=== PATIENT | male | born 1955 | race Caucasian/White ===

== ENCOUNTER 2016-09-29 11:09 | Emergency (ER) | payer OTHER ==
[~2016-09-29] VITALS: Ht 172.7 cm; Wt 60.7 kg
[~2016-09-29 11:09] MED LIST: FLUT220A INH; LORA-741 PO; OXYC-59 PO; TRAV0.00 OPB; VNTHFA/IN PO
[2016-09-29 11:16] VITALS: TEMP 37; Ht 172.7 cm; Wt 60.7 kg
--- NOTE | 2016-09-29 12:33 | EMERGENCY ROOM VISIT NOTE ---
History Report prepared by Nga: Tania Arora Under the Supervision of: Dr. Lewis Newby D.O. First contact with patient: 11:46 Chief Complaint: REFERRED BY DOCTOR Stated Complaint: HIGH WHITE BLOOD COUNT - REF BY History of Present Illness The patient is a 61 year old male who presents to the Emergency Room with complaints of persistent abnormal labs that were drawn yesterday. He currently rates his discomfort as a 7/10 in severity. The patient states that he saw his PCP's office yesterday regarding two enlarged lymph nodes and additionally notes that he has an enlarged lymph node in his right axilla. He states that he had blood work drawn and was called today say that his white blood count was elevated. The patient states that he was diagnosed with CLL 20 months ago. He denies being on any current radiation or chemotherapy treatments. The patient states that today he was instructed to come to the emergency department by his PCP's office. He states that his PCP's office did not consult his oncologist about his laboratory findings. Source of History: patient Onset: yesterday Position: other (global) Symptom Intensity: 7/10 Quality: other (abnormal labs) Timing: other (persistent) Associated Symptoms: + lymphadenopathy Review of Systems See HPI for pertinent positives & negatives. A total of 10 systems reviewed and were otherwise negative. Past Medical & Surgical Medical Problems: (1) CLL (chronic lymphocytic leukemia) Surgical Problems: (1) Status post right knee replacement Family History Heart disease Social History Smoking Status: Never Smoker Smokeless Tobacco Use: No Alcohol Use: none Drug Use: none Marital Status: single Housing Status: lives alone Occupation Status: unemployed Current/Historical Medications Scheduled Lorazepam (Ativan), 0.5 MG PO QID Travoprost (Travatan Z), 1 DROP OPB HS Scheduled PRN Albuterol Hfa (Ventolin Hfa), 2 PUFFS PO DAILY PRN for Shortness of Breath Fluticasone Propionate Hfa (Flovent Hfa 220MCG Inhaler), 1 PUFF INH DAILY PRN for Shortness of Breath Oxycodone/Acetaminophen 10MG/325MG (Percocet 10MG/325MG), 2 TABS PO BID PRN for Pain Allergies Coded Allergies: Bee Venom (Unverified Allergy, Unknown, throat swelling , 09/29/16) Physical Exam Vital Signs Date Time Temp Pulse Resp B/P Pulse Ox O2 Delivery O2 Flow Rate FiO2 09/29/16 11:16 37.0 120 18 143/93 95 Room Air Physical Exam CONSTITUTIONAL/VITAL SIGNS: Reviewed / noted above. GENERAL: Non-toxic in appearance. INTEGUMENTARY: Warm, dry, and [place]. HEAD: Normocephalic. EYES: without scleral icterus or trauma. ENT/OROPHARYNX: clear and moist. LYMPHADENOPATHY/NECK: Is supple without lymphadenopathy or meningismus. Notable lymphadenopathy in bilateral inguinal regions and right axilla. RESPIRATORY: Lungs clear and equal. CARDIOVASCULAR: Regular rate and rhythm. GI/ABDOMEN: Soft and nontender. No organomegaly or pulsatile mass. No rebound or guarding. Normal bowel sounds. EXTREMITIES: Warm and well perfused. BACK: No CVA tenderness. NEUROLOGICAL: Intact without focal deficits. PSYCHIATRIC: normal affect. MUSCULOSKELETAL: Normally developed with good muscle tone. Medical Decision & Procedures ED Course 1146: Previous medical records were reviewed. The patient was evaluated in room C5. A complete history and physical examination was performed. 1224: I discussed the patients case with Dr. Blackman, Oncology. He states that someone from their office will contact him early next week for follow up. 1234: I reevaluated the patient and he is resting comfortably. I discussed the exam findings with him and I discussed the treatment plan. He verbalized complete understanding and agreement. He is ready to go home. Medical Decision Differential diagnosis include CLL, infection, anemia. This is a 61-year-old male who presents to the ED with a chief complaint of an outpatient white blood cell count 59,000. The patient reports some inguinal lymphadenopathy but otherwise states the has no specific complaints. His PCP ordered the blood work. They sent him here to the emergency department for assessment. I spoke with Dr. Cifuentes about the patient. He is setting the patient up for an outpatient scan and the office will contact for an appointment next week. The patient was felt to be stable for discharge. Consults Time Called: 1210 Consulting Physician: Dr. Blackman, Oncology Returned Call: 1224 I discussed the patients case with Dr. Blackman, Oncology. He states that someone from their office will contact him early next week for follow up. Impression Primary Impression: CLL (chronic lymphocytic leukemia) Scribe Attestation The scribe's documentation has been prepared under my direction and personally reviewed by me in its entirety. I confirm that the note above accurately reflects all work, treatment, procedures, and medical decision making performed by me. Departure Information Dispostion Home / Self-Care Referrals Adriano Izaguirre M.D. (PCP) Adriano Payne D.O. Forms HOME CARE DOCUMENTATION FORM, IMPORTANT VISIT INFORMATION, WORK / SCHOOL INSTRUCTIONS Patient Instructions My [facility] Additional Instructions Dr. Payne's office will contact you next week for a scan and follow-up appointment.
[2016-09-29 12:38] VITALS: BP 149/89; PULSE 95; O2SAT 93
[2016-12-08] MEDS ORDERED: BND25X PO (10:05)
[2016-12-08] MEDS ORDERED: [UNRECOGNIZED DRUG - CODE] EXT (10:05)
[2016-12-08] MEDS ORDERED: PRD20 PO (10:05)
[2017-04-03] MEDS ORDERED: PROC1TAB5 PO (08:41)
[2017-04-03] MEDS ORDERED: MULT-506 PO (08:41)
[2017-04-03] MEDS ORDERED: DOCU-94 PO (08:41)
[2017-04-16] MEDS ORDERED: SULF800T23 PO (15:25)
== END 2016-09-29 12:45 | disposition home or self-care (01) ==
LOC: C.EDB 11:12 → C.EDC 12:45
DX: C91.10 Chronic lymphocytic leukemia of B-cell type not having achieved remission (principal)

== ENCOUNTER → 2016-10-06 | Outpatient (CLI) | payer OTHER ==
[~2016-10-06] MED LIST changes: +BND25X PO; +DOCU-94 PO; +FLVHFA110 INH; +MULT-506 PO; +OPTIRAY 320 IV PRN; +OXYC-164 PO; +PRD20 PO; +PROC1TAB5 PO; +SULF800T23 PO; +XLTOPS OPB; +[UNRECOGNIZED DRUG - CODE] EXT
--- NOTE | 2016-10-06 15:22 | DIAGNOSTIC IMAGING REPORT ---
CT ABD/PELVIS IV AND ORAL CONT CLINICAL HISTORY: CLL COMPARISON STUDY: 12/06/2015 TECHNIQUE: Following the IV administration of 92 mL of Optiray-320, CT scan of the abdomen and pelvis was performed from the lung bases to the proximal femurs. Images are reviewed in the axial, sagittal, and coronal planes. IV contrast was administered without complication. CT DOSE: 904.93 mGy.cm FINDINGS: Lower chest: There is mild interstitial scarring within the right middle lobe and right lower lobe. There are no pleural effusions. Liver: The liver has a cirrhotic morphology. Esophageal varices are visualized. Gallbladder: Unremarkable. Spleen: There is progressive splenomegaly (16.2 cm in length) Pancreas: Unremarkable. Adrenal glands: Unremarkable. Kidneys: There is symmetric renal cortical enhancement. The kidneys are normal in size without hydronephrosis. Bowel: There are no transition zones indicate bowel obstruction. The appendix appears normal. There is no acute diverticulitis. Peritoneum: There is no intraperitoneal free air or abdominal ascites. Vasculature: The abdominal aorta is normal in course and caliber. Adenopathy: There is progressive abdominal lymphadenopathy. There are enlarged lymph nodes within the gastrohepatic ligament, and aortocaval region. At the level of the renal hilum, the clustered left pelvic lymph nodes measure 39 x 37 mm. There are mildly enlarged left pelvic sidewall lymph nodes. There are mildly enlarged common femoral lymph nodes. Also evident are enlarged retrocrural nodes. Pelvic viscera: The bladder, and pelvic viscera are unremarkable. Skeletal structures: No destructive osseous lesions are seen. IMPRESSION: 1. Cirrhotic hepatic morphology with esophageal varices 2. Progressive splenomegaly 3. Progressive abdominal lymphadenopathy with enlarged retrocrural lymph nodes, gastrohepatic ligament lymph nodes, aortocaval lymph nodes, and iliac and pelvic sidewall lymph nodes. Electronically signed by: Milton Vasquez M.D. 10/06/2016 3:21 PM Dictated Date/Time: 10/06/2016 3:13 PM
--- NOTE | 2016-10-06 15:23 | DIAGNOSTIC IMAGING REPORT ---
CT SOFT TISSUE NECK WITH CLINICAL HISTORY: Chronic lymphocytic leukemia. TECHNIQUE: Axial images of the neck were obtained following intravenous injection of 92 cc Optiray 320 IV. The chest, abdomen and pelvis will be reported separate. COMPARISON STUDY: Chest CT December 06, 2015. FINDINGS: Visualized portions of the intracranial contents are unremarkable. The epiglottis is normal. No mucosal lesion is identified although these may be occult by CT. No suspicious osseous lesions are present. There are multiple enlarged bilateral cervical lymph nodes. An index left level 2 node shown on image 83 of 208 measures 1.4 cm in short axis diameter. There are moderately enlarged left lower neck and supraclavicular lymph nodes. An index left level 4 node shown on image 161 measures 3.3 x 1.3 cm. It previously measured 2.6 x 1.2 cm. The chest will be reported separately. Major vasculature of the neck is patent. IMPRESSION: Moderate cervical lymphadenopathy consistent with the history of CLL. Left lower neck and supraclavicular lymph nodes have mildly increased in size since exam of December 06, 2015. Electronically signed by: Derrick Lowe M.D. 10/06/2016 3:22 PM Dictated Date/Time: 10/06/2016 3:08 PM
--- NOTE | 2016-10-06 15:31 | DIAGNOSTIC IMAGING REPORT ---
CT SCAN OF THE CHEST WITH IV CONTRAST CLINICAL HISTORY: CLL follow-up. COMPARISON STUDY: Chest CT scans dated 12/06/2015 and 02/02/2015. TECHNIQUE: Following the IV administration of 92 cc of Optiray 320, CT scan of the thorax was performed from the thoracic inlet to the upper abdomen. Images are reviewed in the axial, sagittal, and coronal planes. IV contrast was administered without complication. FINDINGS: Thyroid: Imaged portions of the thyroid gland are normal in size and attenuation. Thoracic aorta: The thoracic aorta is normal in caliber and demonstrates standard 3-vessel arch anatomy. No dissection is seen. Pulmonary vasculature: The pulmonary trunk is normal in caliber. There are no filling defects identified in the central pulmonary vessels to indicate pulmonary embolus. Note that this examination was not protocoled for evaluation of the pulmonary arteries. Heart: The heart is normal in size and configuration, and without pericardial effusion. Lungs and pleural spaces: There is no airspace consolidation typical for pneumonia. No pleural effusion is identified. Large calcified pleural plaques on the right with foci of subpleural scarring are similar to previous. Mild volume loss is noted in the right lung. The trachea and central airways are clear. Mediastinum: There are numerous mildly enlarged mediastinal lymph nodes. These are similar to slightly increased in size from the 12/06/2015 examination. A prevascular node on image #117 measures 1.2 x 0.9 cm (previously measuring 1.1 x 0.9 cm). An AP window node on image #119 measures 0.9 x 1.6 cm (previously measured 0.6 x 1.1 cm). Felecia: Prominent hilar lymph nodes are similar to previous and measure up to 1.0 cm in short axis. Axillae: Numerous mildly enlarged bilateral axillary lymph nodes are similar to slightly increased in size from the 12/06/2015 examination. The largest node is seen on the right and measures 1.1 x 2.2 cm (axial image #71). Lower neck: A mildly enlarged supraclavicular lymph nodes are similar to previous. The largest node is seen on the lefton image #3 and measures 1.5 x 3.6 cm. Upper abdomen: The liver is cirrhotic in morphology and heterogeneous attenuation. There is hypertrophy of the left lobe and nodularity of the surface contour. The spleen is enlarged. Cortical atrophy is noted in the kidneys. Paraesophageal varices are noted. There are enlarged retroperitoneal, retrocrural, and upper abdominal lymph nodes. See report of abdominal CT performed concurrently for detailed intra-abdominal findings. Skeletal structures: The skeletal structures are osteopenic. Arthritic change is present in the thoracic spine and shoulders. No lytic or blastic bony lesions are seen. IMPRESSION: 1. Numerous mildly enlarged supraclavicular, axillary, mediastinal, and hilar lymph nodes are identified and unchanged to slightly increased in size from the 12/06/2015 examination. 2. There is no airspace consolidation or pleural effusion. 3. Extensive calcified pleural plaque with subpleural scarring in the right lung is similar to prior studies. 4. Cirrhotic liver morphology and esophageal varices. 5. Splenomegaly. 6. Additional changes as above. Electronically signed by: Jones Tadeo M.D. 10/06/2016 3:30 PM Dictated Date/Time: 10/06/2016 3:18 PM
== END | disposition home or self-care (01) ==
LOC: C.CTS 14:33
PROVIDERS: ATTEND Internal Medicine Hematology & Oncology
DX: C91.10 Chronic lymphocytic leukemia of B-cell type not having achieved remission (principal)

== ENCOUNTER → 2016-10-11 | Outpatient (CLI) | payer OTHER ==
[~2016-10-11] MED LIST changes: -OPTIRAY 320 IV PRN
== END | disposition home or self-care (01) ==
LOC: C.PATHSPEC 17:18
PROVIDERS: ATTEND Urology
DX: D41.4 Neoplasm of uncertain behavior of bladder (principal)

== ENCOUNTER 2016-12-06 02:16 | Inpatient (IN) | payer OTHER ==
[~2016-12-06] VITALS: Ht 172.7 cm; Wt 61.1 kg
[~2016-12-06 02:16] MED LIST changes: -BND25X PO; -DOCU-94 PO; -FLVHFA110 INH; -MULT-506 PO; -OXYC-164 PO; -PRD20 PO; -PROC1TAB5 PO; -SULF800T23 PO; -XLTOPS OPB; -[UNRECOGNIZED DRUG - CODE] EXT
[2016-12-06] MEDS ORDERED: SODIUM CHLORIDE 0.9% 500ML 500 ML IV STA (02:25)
[2016-12-06] MEDS ORDERED: SODIUM CHLORIDE 0.9% 1000ML 1,000 ML IV STA (02:25)
[2016-12-06] MEDS ORDERED: ONDANSETRON INJ 2 MG/ML 2 ML VIAL IV STA (02:50)
[2016-12-06] MEDS ORDERED: CEFEPIME IV 2,000 MG in DEXTROSE 5% 100ML 100 ML IV STA (02:56)
[2016-12-06] MEDS ORDERED: LEVAQUIN 750MG / 150ML D5W IV STA (02:56)
[2016-12-06 02:58] LABS: HEMATOCRIT 35.8 % (42-52); MEAN CELL VOLUME 95.7 fL (80-100); MEAN CORPUSCULAR HEMOGLOBIN 32.1 pg (25-34); MEAN CORPUSCULAR HGB CONC 33.5 g/dl (32-36); RED BLOOD COUNT 3.74 M/uL (4.7-6.1); WHITE BLOOD COUNT 6.19 K/uL (4.8-10.8)
[2016-12-06 03:02] LABS: MEAN PLATELET VOLUME 10.4 fL (7.4-10.4); PLATELET COUNT 64 K/uL (130-400)
[2016-12-06 03:06] LABS: INR 1.1 (0.9-1.1); PARTIAL THROMBOPLASTIN RATIO 0.9; PROTHROMBIN TIME (PATIENT) 11.5 SECONDS (9.0-12.0)
[2016-12-06 03:16] LABS: CALCIUM 8.3 mg/dl (8.5-10.1); CREATININE 0.93 mg/dl (0.60-1.40); MAGNESIUM 1.6 mg/dl (1.8-2.4); POTASSIUM 3.9 mmol/L (3.5-5.1)
[2016-12-06] MEDS ORDERED: ACETAMINOPHEN 325 MG TAB PO STA (03:16)
[2016-12-06 03:18] LABS: URINE APPEARANCE CLOUDY (CLEAR); URINE BILIRUBIN NEG (NEG); URINE COLOR YELLOW; URINE NITRITE NEG (NEG); URINE SPECIFIC GRAVITY 1.022 (1.000-1.030); UROBILINOGEN NEG (NEG); ZZUR CULT IF INDIC CLEAN CATCH NO
[2016-12-06 03:26] LABS: MANUAL MICROSCOPIC REQUIRED? NO; REVIEW REQ? NO
[2016-12-06 03:49] LABS: BASO ABS # 0.11 K/uL (0-0.2); BASOPHIL % 1.7 % (0-2); COMPLETE YES; LARGE PLATELETS 1+; LYMPHOCYTE % 37.1 %; NEUTROPHILS % 53.4 %; PROLYM# MAN 0.48 K/uL (0-0)
[2016-12-06] MEDS ORDERED: XLTOPS OPB (03:59)
[2016-12-06] MEDS ORDERED: OXYC-164 PO (03:59)
[2016-12-06] MEDS ORDERED: FLVHFA110 INH (04:01)
[2016-12-06 04:56] LABS: INFLUENZA A PCR Neg for Influ A (NEG); INFLUENZA B PCR Neg for Influ B (NEG)
[2016-12-06] MEDS ORDERED: MAGNESIUM SULFATE 1GM / D5W 1 GM IV STA (05:01)
[2016-12-06] MEDS ORDERED: POLYETHYLENE (MIRALAX) 17 GM PACK PO PRN ×2 (05:15→10:45)
[2016-12-06] MEDS ORDERED: ALUMINUM/MAGNESIUM/SIMETH (MAALOX MAX) 30 ML UDC PO PRN (05:15)
[2016-12-06] MEDS ORDERED: MAGNESIUM HYDROXIDE SUSP 30 ML UDC PO PRN (05:15)
[2016-12-06] MEDS ORDERED: ALBUTEROL HFA 8 GM INHALER INH PRN (05:15)
[2016-12-06] MEDS ORDERED: FLUTICASONE HFA 110MCG INHALER INH PRN (05:15)
[2016-12-06] MEDS ORDERED: SODIUM CHLORIDE 0.9% 1000ML 1,000 ML IV SCH (05:30)
--- NOTE | 2016-12-06 05:42 | History and Physical ---
History & Physical Date & Time of Service: Dec 06, 2016 at 05:33 Chief Complaint: Fever Over 100 - Chemo Today Primary Care Physician: Darci Allen PA-C History of Present Illness Source: patient This is a 61 y/o M with CLL, Bladder Cancer who presents with a fever of 101. He had chemotherapy treatment yesterday and was advised by Dr. Payne to come to the hospital if he has a temp over 100. This is his second treatment. He was diagnosed with CLL 2 years ago but reports that his counts were not acceptable for treatment. He was originally following Dr. Bunn but has switched to Dr. Payne. He says that he has been coughing up some brownish phlegm. Denies urinary symptoms, skin changes Admits to Nausea and vomiting, denies chest pain, shortness of breath, abdominal pain, diarrhea Lives alone. Quit smoking 3 years ago Does still use marijuana a few times a week. Past Medical/Surgical History Medical Problems: (1) CLL (chronic lymphocytic leukemia) Status: Resolved Surgical Problems: (1) Status post right knee replacement Status: Resolved Family History Heart disease Social History Smoking Status: Former Smoker Drug Use: none Marital Status: single Housing status: lives alone Occupational Status: unemployed Immunizations History of Influenza Vaccine: No History of Tetanus Vaccine?: Unknown History of Pneumococcal: No History of Hepatitis B Vaccine: Unknown Multi-Drug Resistant Organisms History of MDRO: No Allergies Coded Allergies: Bee Venom (Unverified Allergy, Unknown, throat swelling , 12/06/16) Home Medications Scheduled Latanoprost (Latanoprost), 1 DROP OPB HS Scheduled PRN Albuterol Hfa (Ventolin Hfa), 2 PUFFS PO DAILY PRN for Shortness of Breath Fluticasone Propionate (Flovent Hfa), 1 PUFFS INH DAILY PRN for Shortness of Breath Lorazepam (Ativan), 0.5 MG PO QID PRN for Anxiety Oxycodone Hcl (Oxycodone Hcl), 1 TAB PO q4-6 hrs PRN for Pain Review of Systems Constitutional: + chills, + fatigue, + fever, + weakness Respiratory: + cough, + sputum, No dyspnea at rest, No dyspnea on exertion, No shortness of breath, No wheezing Cardiovascular: No chest pain Abdomen: + nausea, + vomiting, No diarrhea, No pain Genitourinary - Male: No dysuria, No urinary frequency, No urinary hesitancy, No urinary urgency Hematologic / Lymphatic: + swollen lymph nodes Physical Exam Vital Signs Date Time Temp Pulse Resp B/P Pulse Ox O2 Delivery O2 Flow Rate FiO2 12/06/16 05:02 37.6 111 16 109/64 95 Room Air 12/06/16 03:29 117 20 126/71 94 Room Air 12/06/16 02:58 120 12/06/16 02:21 37.9 132 20 141/78 97 Room Air General Appearance: no apparent distress Eyes: PERRL, EOMI ENT: hearing grossly normal, pharynx normal Neck: + adenopathy present Respiratory/Chest: lungs clear, normal breath sounds, no respiratory distress, no accessory muscle use Cardiovascular: no murmur, normal peripheral pulses, + tachycardia Abdomen/GI: normal bowel sounds, non tender, soft Back: no CVA tenderness Extremities/Musculoskelatal: no calf tenderness, normal capillary refill, no pedal edema Neurologic/Psych: no motor/sensory deficits, alert, normal mood/affect, oriented x 3 Diagnostics Laboratory Results Results Past 24 Hours Test 12/06/16 02:35 12/06/16 02:38 12/06/16 02:42 12/06/16 02:44 Range/Units Influenza Type A (RT-PCR) Neg for Influ A NEG Influenza Type A Antigen Neg for Influ A NEG Influenza Type B Antigen Neg for Influ B NEG Influenza Type B (RT-PCR) Neg for Influ B NEG White Blood Count 6.19 4.8-10.8 K/uL Red Blood Count 3.74 4.7-6.1 M/uL Hemoglobin 12.0 14.0-18.0 g/dL Hematocrit 35.8 42-52 % Mean Corpuscular Volume 95.7 80-100 fL Mean Corpuscular Hemoglobin 32.1 25-34 pg Mean Corpuscular Hemoglobin Concent 33.5 32-36 g/dl Platelet Count 64 130-400 K/uL Mean Platelet Volume 10.4 7.4-10.4 fL RDW Standard Deviation 50.7 36.4-46.3 fL RDW Coefficient of Variation 14.4 11.5-14.5 % Neutrophils % (Manual) 53.4 % Lymphocytes % (Manual) 37.1 % Prolymphocyte % 7.8 % Basophils % (Manual) 1.7 0-2 % Neutrophils # (Manual) 3.31 1.4-6.5 K/uL Total Absolute Neutrophils 3.31 1.4-6.5 K/uL Lymphocytes # (Manual) 2.30 1.2-3.4 K/uL Prolymphocyte # 0.48 0-0 K/uL Total Absolute Lymphocytes 2.30 1.2-3.4 K/uL Basophils # (Manual) 0.11 0-0.2 K/uL Large Platelets 1+ Prothrombin Time 11.5 9.0-12.0 SECONDS Prothromb Time International Ratio 1.1 0.9-1.1 Activated Partial Thromboplast Time 24.0 21.0-31.0 SECONDS Partial Thromboplastin Ratio 0.9 Sodium Level 139 136-145 mmol/L Potassium Level 3.9 3.5-5.1 mmol/L Chloride Level 104 98-107 mmol/L Carbon Dioxide Level 27 21-32 mmol/L Anion Gap 8.0 3-11 mmol/L Blood Urea Nitrogen 15 7-18 mg/dl Creatinine 0.93 0.60-1.40 mg/dl Est Creatinine Clear Calc Drug Dose 75.9 ml/min Estimated GFR () 103.1 Estimated GFR (Non- 88.9 BUN/Creatinine Ratio 16.0 10-20 Random Glucose 101 70-99 mg/dl Calcium Level 8.3 8.5-10.1 mg/dl Magnesium Level 1.6 1.8-2.4 mg/dl Total Bilirubin 0.6 0.2-1 mg/dl Direct Bilirubin 0.2 0-0.2 mg/dl Aspartate Amino Transf (AST/SGOT) 33 15-37 U/L Alanine Aminotransferase (ALT/SGPT) 34 12-78 U/L Alkaline Phosphatase 58 45-117 U/L Total Creatine Kinase 48 39-308 U/L Creatine Kinase MB 0.5 0.5-3.6 ng/ml Creatine Kinase MB Ratio 1.0 0-3.0 Total Protein 6.9 6.4-8.2 gm/dl Albumin 4.0 3.4-5.0 gm/dl Lipase 101 73-393 U/L Bedside Troponin I 0.000 0-0.045 ng/ml Bedside Lactic Acid Venous 1.92 0.90-1.70 mmol/L Test 12/06/16 03:11 Range/Units Urine Color YELLOW Urine Appearance CLOUDY CLEAR Urine pH 5.0 4.5-7.5 Urine Specific [place] 1.022 1.000-1.030 Urine Protein NEG NEG Urine Glucose (UA) NEG NEG Urine Ketones NEG NEG Urine Occult Blood NEG NEG Urine Nitrite NEG NEG Urine Bilirubin NEG NEG Urine Urobilinogen NEG NEG Urine Leukocyte Esterase NEG NEG Urine WBC (Auto) 1-5 0-5 /hpf Urine RBC (Auto) 0-4 0-4 /hpf Urine Hyaline Casts (Auto) 1-5 0-5 /lpf Urine Epithelial Cells (Auto) 10-20 0-5 /lpf Urine Bacteria (Auto) NEG NEG Microbiology Results 12/06/16 Blood Culture, Received Pending 12/06/16 Blood Culture, Received Pending Impression Assessment and Plan This is a 61 y/o M currently undergoing chemotherapy (he's unsure of the agents and did not bring his records) for CLL who presents with a Fever, likely of pulmonary source vs. side effect of Chemo. Fever, Meets sirs criteria Patient is not neutropenic but will treat as such U/A clear Chest Xray with scarring on the right and possible development of consolidation L>R Blood cultures pending Sputum cultures pending Start empiric coverage with Levaquin, Zosyn and Vancomycin CT chest and abdomen reviewed from 09/26. numerous enlarged LN, cirrhotic liver, esophageal varices, splenomegaly Consult Oncology repeat Lactate DVT Proph: Lovenox VTE Prophylaxis VTE Risk Assessment Done? Y/N: Yes Risk Level: High Assessment and Plan Attending Addendum: I have physically seen and examined this patient, have directed their medical care, have supervised the medical residents activities, and agree with the H&P as noted above, with the following changes: The patient is awake, well-developed and adequately nourished, alert and oriented 3, normocephalic and atraumatic, lying in bed and in no acute distress. HEENT--PERRL, EOMI, mucous membranes and oropharynx dry. Neck--supple, no JVD or bruits, thyroid normal, trachea midline, anterior cervical adenopathy. Heart--tachycardic and regular, no extra beats, no murmurs, rubs or gallops. Lungs--clear bilaterally with good air movement, no respiratory distress, no accessory muscle use. Abdomen--normal bowel sounds and soft, nontender and nondistended, no hernias or masses, no organomegaly. Extremities--no cyanosis, clubbing or edema. There are good distal pulses b/l. Dermatologic--normal skin turgor, normal color, warm and dry, no abnormal lymph nodes, no rash. Neurologic--cranial nerves II through XII grossly intact, motor and sensory examination normal. Rheumatologic--normal range of motion, nontender, muscles and joints. Psychiatric--normal affect. Assessment and Plan: CLL/bladder cancer with temperature postchemotherapy--we'll place on broad- spectrum antibiotics vancomycin IV per renal dosing, Zosyn 3.375 mg IV every 8 hours, Levaquin 5 mg by mouth daily, guaifenesin extended release 600 mg by mouth twice a day, and Xopenex with Atrovent nebulizer to use every 6 hours while awake and every 2 hours when necessary. Hold Ventolin HFA and Flovent HFA. Blood cultures and sputum cultures pending chest x-ray suggests possible right lower lobe pneumonia as cause. We'll consult his oncologist Dr. Payne. Anxiety--continue lorazepam 0.5 mg by mouth 4 times a day when necessary. Chronic pain syndrome--continue oxycodone 5 mg by mouth every 4 hours when necessary.
--- NOTE | 2016-12-06 05:47 | EMERGENCY ROOM VISIT NOTE ---
History Report prepared by Nga: Yoshi Smith Under the Supervision of: Dr. Trina Stone M.D. First contact with patient: 02:25 Chief Complaint: FEVER Stated Complaint: FEVER OVER 100 - CHEMO TODAY History of Present Illness The patient is a 61 year old male who presents to the Emergency Room with complaints of a constant fever of 100.7 degrees beginning today. He has a history of leukemia and is currently receiving chemotherapy. His most recently chemotherapy treatment was today. The patient denies any leg swelling, shortness of breath, or chest pain. He notes that he has low blood counts. He states that he began chemotherapy last month, and has only had it twice prior to today. The patient states that he took a half dose of lorazepam tonight to go to sleep, but otherwise denies any drug or medication use. Source of History: patient Onset: today Symptom Intensity: 100.7 degrees Quality: other (fever) Timing: constant Associated Symptoms: No SOB, No chest pain Note: The patient denies any leg swelling. Review of Systems See HPI for pertinent positives & negatives. A total of 10 systems reviewed and were otherwise negative. Past Medical & Surgical Medical Problems: (1) CLL (chronic lymphocytic leukemia) (2) CLL (chronic lymphocytic leukemia) (3) Fever Surgical Problems: (1) Status post right knee replacement Family History Heart disease Social History Smoking Status: Former Smoker Alcohol Use: none Drug Use: none Marital Status: single Housing Status: lives alone Occupation Status: unemployed Current/Historical Medications Scheduled Latanoprost (Latanoprost), 1 DROP OPB HS Scheduled PRN Albuterol Hfa (Ventolin Hfa), 2 PUFFS PO DAILY PRN for Shortness of Breath Fluticasone Propionate (Flovent Hfa), 1 PUFFS INH DAILY PRN for Shortness of Breath Lorazepam (Ativan), 0.5 MG PO QID PRN for Anxiety Oxycodone Hcl (Oxycodone Hcl), 1 TAB PO q4-6 hrs PRN for Pain Allergies Coded Allergies: Bee Venom (Unverified Allergy, Unknown, throat swelling , 12/06/16) Physical Exam Vital Signs Date Time Temp Pulse Resp B/P Pulse Ox O2 Delivery O2 Flow Rate FiO2 12/06/16 05:02 37.6 111 16 109/64 95 Room Air 12/06/16 03:29 117 20 126/71 94 Room Air 12/06/16 02:58 120 12/06/16 02:21 37.9 132 20 141/78 97 Room Air Physical Exam Vital signs reviewed. General: Somewhat ill-appearing male, in no significant distress. HEENT: No scleral icterus, PERRLA, neck supple. Atraumatic. Cardiovascular: Tachycardic rate with a regular rhythm, no extra sounds. Pulmonary: Clear to auscultation bilaterally, normal work of breathing. Abdomen: Soft, nontender, nondistended, positive bowel sounds. Musculoskeletal: Atraumatic, no peripheral edema. Neurologic: Patient awake alert and oriented x 3, full strength in all 4 extremities. Cranial nerves 2 through 12 grossly intact. Skin: Warm, dry, no rash Medical Decision & Procedures ER Provider Diagnostic Interpretation: One View Chest X-ray interpreted by me: right pleural effusion with right mid- lung lateral plaque. Laboratory Results Test 12/06/16 02:35 12/06/16 02:38 12/06/16 02:42 12/06/16 02:44 Influenza Type A (RT-PCR) Neg for Influ A (NEG) Influenza Type A Antigen Neg for Influ A (NEG) Influenza Type B Antigen Neg for Influ B (NEG) Influenza Type B (RT-PCR) Neg for Influ B (NEG) RDW Standard Deviation 50.7 fL (36.4-46.3) RDW Coefficient of Variation 14.4 % (11.5-14.5) White Blood Count 6.19 K/uL (4.8-10.8) Red Blood Count 3.74 M/uL (4.7-6.1) Hemoglobin 12.0 g/dL (14.0-18.0) Hematocrit 35.8 % (42-52) Mean Corpuscular Volume 95.7 fL (80-100) Mean Corpuscular Hemoglobin 32.1 pg (25-34) Mean Corpuscular Hemoglobin Concent 33.5 g/dl (32-36) Platelet Count 64 K/uL (130-400) Mean Platelet Volume 10.4 fL (7.4-10.4) Neutrophils % (Manual) 53.4 % Lymphocytes % (Manual) 37.1 % Prolymphocyte % 7.8 % Basophils % (Manual) 1.7 % (0-2) Neutrophils # (Manual) 3.31 K/uL (1.4-6.5) Total Absolute Neutrophils 3.31 K/uL (1.4-6.5) Lymphocytes # (Manual) 2.30 K/uL (1.2-3.4) Prolymphocyte # 0.48 K/uL (0-0) Total Absolute Lymphocytes 2.30 K/uL (1.2-3.4) Basophils # (Manual) 0.11 K/uL (0-0.2) Large Platelets 1+ Prothrombin Time 11.5 SECONDS (9.0-12.0) Prothromb Time International Ratio 1.1 (0.9-1.1) Activated Partial Thromboplast Time 24.0 SECONDS (21.0-31.0) Partial Thromboplastin Ratio 0.9 Est Creatinine Clear Calc Drug Dose 75.9 ml/min Direct Bilirubin 0.2 mg/dl (0-0.2) Total Creatine Kinase 48 U/L (39-308) Creatine Kinase MB 0.5 ng/ml (0.5-3.6) Creatine Kinase MB Ratio 1.0 (0-3.0) Lipase 101 U/L (73-393) Bedside Troponin I 0.000 ng/ml (0-0.045) Bedside Lactic Acid Venous 1.92 mmol/L (0.90-1.70) Test 12/06/16 03:11 Urine Color YELLOW Urine Appearance CLOUDY (CLEAR) Urine pH 5.0 (4.5-7.5) Urine Specific [place] 1.022 (1.000-1.030) Urine Protein NEG (NEG) Urine Glucose (UA) NEG (NEG) Urine Ketones NEG (NEG) Urine Occult Blood NEG (NEG) Urine Nitrite NEG (NEG) Urine Bilirubin NEG (NEG) Urine Urobilinogen NEG (NEG) Urine Leukocyte Esterase NEG (NEG) Urine WBC (Auto) 1-5 /hpf (0-5) Urine RBC (Auto) 0-4 /hpf (0-4) Urine Hyaline Casts (Auto) 1-5 /lpf (0-5) Urine Epithelial Cells (Auto) 10-20 /lpf (0-5) Urine Bacteria (Auto) NEG (NEG) Laboratory results per my review. Medications Administered Medications (Trade) Dose Ordered Sig/Arthur Route Start Time Stop Time Status Last Admin Dose Admin Sodium Chloride 500 ml @ 999 mls/hr Q31M STAT IV 12/06/16 02:25 12/06/16 02:55 DC 12/06/16 02:55 999 MLS/HR Sodium Chloride (Nss 1000ml) 1,000 ml @ 125 mls/hr Q8H STAT IV 12/06/16 02:25 12/06/16 07:16 DC 12/06/16 02:55 125 MLS/HR Ondansetron HCl 4 mg 4 mg NOW STAT IV 12/06/16 02:50 12/06/16 02:51 DC 12/06/16 02:59 4 MG Cefepime HCl/ Dextrose (Maxipime IV/D5 100ml) 112.5 ml @ 200 mls/hr NOW STAT IV 12/06/16 02:56 12/06/16 03:29 DC 12/06/16 03:22 200 MLS/HR Levofloxacin (Levaquin / D5W) 750 mg NOW STAT IV 12/06/16 02:56 12/06/16 03:00 DC 12/06/16 04:02 750 MG Acetaminophen 650 mg 650 mg NOW STAT PO 12/06/16 03:16 12/06/16 03:17 DC 12/06/16 03:24 650 MG Magnesium Sulfate (Magnesium Sulfate) 100 ml @ 100 mls/hr NOW STAT IV 12/06/16 05:01 12/06/16 06:00 DC 12/06/16 06:02 100 MLS/HR ECG Indication: other (fever) Rate (beats per minute): 123 Rhythm: sinus tachycardia Findings: no acute ischemic change, no ectopy ED Course 0233: Past medical records reviewed. The patient was evaluated in room A3. A complete history and physical examination was performed. 0225: Ordered Sodium Chloride 1000 ml @ 125 mls/hr IV, Sodium Chloride 500 ml @ 999 mls/hr IV. 0250: Ordered Zofran Inj 4 mg IV, Levofloxacin 750 mg IV, Cefepime HCl 2000 mg/ Dextrose 112.5 mL @ 200 mL/hr IV. 0316: Ordered Tylenol Tab 650 mg PO. 0435: Upon reevaluation, the patient is resting comfortably. I discussed laboratory and radiographic results with him. He verbalized agreement of the treatment plan. Dr. Lyle of the [facility] Hospitalist Service will evaluate the patient for further management and care. Medical Decision Fever: Influenza, other viral illness, pneumonia, urinary tract infection, metabolic abnormality, medication effect, cellulitis, meningitis, intra-abdominal source. This patient was evaluated and appeared to be in no significant distress. The patient's had a low-grade temperature. IV access was obtained and laboratory work was drawn. The patient was hydrated with normal saline solution. Blood cultures are pending. Lactate is normal. The patient's heart rate did improve somewhat, but he did remain tachycardic. There is a plaque identified on chest x-ray without infiltrate. Patient's white blood cell count is normal. Influenza swab is negative. Given the patient's history, he was medicated with 2 g of IV cefepime and IV Levaquin. The patient was discussed with the hospitalist service. He will be evaluated for further management. Patient is aware of the plan and agrees. Consults Time Called: [id number] Consulting Physician: Dr. Lyle -MARQUEZ I reviewed the patient's case with Dr. Lyle. MARQUEZ will evaluate the patient for further management. Impression Primary Impression: Tachycardia Additional Impression: Fever Scribe Attestation The scribe's documentation has been prepared under my direction and personally reviewed by me in its entirety. I confirm that the note above accurately reflects all work, treatment, procedures, and medical decision making performed by me. Departure Information Dispostion Being Evaluated By Hospitalist Referrals No Doctor, Assigned (PCP) Patient Instructions My [facility] Problem Qualifiers Additional Impression: Fever Fever type: unspecified Qualified Codes: R50.9 - Fever, unspecified
[2016-12-06 06:30] VITALS: BP 114/68; PULSE 111; TEMP 37.4; O2SAT 98; BMI 21.2
--- NOTE | 2016-12-06 07:10 | DIAGNOSTIC IMAGING REPORT ---
CHEST ONE VIEW PORTABLE CLINICAL HISTORY: Fever. Chemotherapy. COMPARISON STUDY: Chest CT October 06, 2016. FINDINGS: Dense right hemithorax pleural calcification is chronic. There is no pneumothorax or pleural effusion. No consolidation is identified to suggest pneumonia. Cardiac size is normal. Mediastinal contours are normal. The appearance of the chest is unchanged. IMPRESSION: No acute findings. No change in appearance of the chest. Electronically signed by: Derrick Lowe M.D. 12/06/2016 7:09 AM Dictated Date/Time: 12/06/2016 7:07 AM
[2016-12-06] MEDS: SODIUM CHLORIDE 0.9% 1000ML 1,000 ML IV SCH ×2 (07:20→16:35)
[2016-12-06] MEDS ORDERED: PIPERACILL/TAZOBAC IV 3.375 GM in DEXTROSE 5% 100ML IV ONE (07:30)
[2016-12-06] MEDS ORDERED: INFLUENZA ADMINISTRATION CHARGE ONE (07:30)
[2016-12-06] MEDS ORDERED: INFLUENZA VIRUS QUAD VACCINE 0.5 ML SYR IM. ONE (07:30)
[2016-12-06 07:42] VITALS: BP 115/67; PULSE 110; TEMP 37.4; O2SAT 93
[2016-12-06] MEDS ORDERED: PIPERACILL/TAZOBAC CONSULT ACTIVE PRN (07:45)
[2016-12-06] MEDS ORDERED: VANCOMYCIN CONSULT ACTIVE PRN (07:45)
[2016-12-06] MEDS ORDERED: VANCOMYCIN INJ 1,500 MG in SODIUM CHLORIDE 0.9% 500ML 500 ML IV ONE (08:00)
[2016-12-06] MEDS ORDERED: VANCOMYCIN INJ 1,000 MG in SODIUM CHLORIDE 0.9% 250ML 250 ML IV SCH (09:00)
--- NOTE | 2016-12-06 09:09 | Pharmacy Progress Note ---
Pharmacy Antibiotic Consult Date of Service: Dec 06, 2016. Pharmacy Dosing Scope Pharmacy is consulted to initiate Vancomycin and Zosyn IV dosing therapy, order appropriate labs and adjust drug dose/frequency. Subjective The patient is a 61 year old male admitted on Dec 06, 2016 at 05:09 with productive cough and fever. Objective Height (Feet): 5 Height (Inches): 8.00 Weight (Kilograms): 63.300 Lab Results (24hrs): Laboratory Tests Test 12/06/16 02:38 BUN/Creatinine Ratio 16.0 Blood Urea Nitrogen 15 mg/dl Creatinine 0.93 mg/dl White Blood Count 6.19 K/uL Red Blood Count 3.74 M/uL Hemoglobin 12.0 g/dL Hematocrit 35.8 % Mean Corpuscular Volume 95.7 fL Mean Corpuscular Hemoglobin 32.1 pg Mean Corpuscular Hemoglobin Concent 33.5 g/dl Platelet Count 64 K/uL Mean Platelet Volume 10.4 fL Micro Results: Item Value Date Time Blood Culture Received 12/06/16 0238 Blood Pending Blood Culture Received 12/06/16 0240 Blood Pending Assessment & Plan Assessment 61 year old male with h/o CLL and bladder cancer admitted with productive cough and fever. Patient received chemotherapy on 12/05/16. Patient will be treated for febrile neutropenia despite normal WBC at this time. Patient meets SIRS criteria as evidenced by: * Febrile * Heart rate > 90 bmp Risk factors for resistant organisms: * Hospitalization for >/= 48 hours within the past 90 days * Immunocompromised (active chemotherapy) Plan Vancomycin and Zosyn for treatment of Febrile neutropenia - possible pulmonary source Patient also ordered Levaquin (not pharmacy consult) Vancomycin IV Loading dose: 1500 mg (23.7 mg/kg) Maintenance dose: 1150 mg IV (18 mg/kg) every 12 hours Goal trough level for possible pnx : 15 to 20 mcg/mL Trough level ordered for 12/08/16 Will order MRSA nasal swab to guide further therapy Piperacillin/tazobactam 3.375 g bolus administered over 30 minutes, then 3.375 g IV extended infusion every 8 hours for CrCl greater than 20 mL/min Pharmacy will continue to follow and will adjust dose/frequency as necessary. Thank you
[2016-12-06] MEDS: LACTOBACILLUS ACIDOPHILUS (FLORANEX) TAB PO SCH ×3 (09:14→16:39)
[2016-12-06] MEDS: ENOXAPARIN 40 MG/0.4 ML SYR SQ SCH (09:16)
[2016-12-06] MEDS: LORAZEPAM 0.5 MG TAB PO PRN ×3 (09:28→23:20)
[2016-12-06] MEDS: OXYCODONE HCL IR 5 MG TAB (IMMEDIATE RELEASE) PO PRN ×3 (09:29→23:18)
--- NOTE | 2016-12-06 09:53 | ONCOLOGY CONSULTATION ---
DATE OF CONSULTATION: 12/06/2016 DATE OF CONSULTATION: 12/06/2016. REASON FOR CONSULTATION: Low grade fever. HISTORY OF PRESENT ILLNESS: Adriano is a pleasant 61-year-old gentleman who suffers from concurrent chronic lymphocytic leukemia and superficial bladder cancer. Again, Mr. Amaya is well known to our service currently under my care receiving treatment for progressive CLL. He was in the office yesterday receiving his second course of bendamustine and rituximab. I had advised Mr. Amaya at that time if he developed low grade fever to call the service as bendamustine can cause underlying low grade fever. He has no other constitutional symptoms at this time but does suffer from a degree of anxiety prompting his seeking emergent medical care. PAST MEDICAL HISTORY: Again, significant for bladder cancer and chronic lymphocytic leukemia. PAST SURGICAL HISTORY: Includes right knee replacement. MEDICATIONS: Prior to admission include albuterol 2 puffs p.o. inhaled daily p.r.n., Flovent 1 puff inhaled daily p.r.n., lorazepam 0.5 mg q.i.d. p.r.n. for anxiety, oxycodone 5 mg p.o. q. 4-6 hours p.r.n. for pain. ALLERGIES: BEE VENOM. SOCIAL HISTORY: The patient is a reformed smoker. He is single, lives independently. Negative for alcohol or illicit drugs. FAMILY HISTORY: Positive for cardiovascular disease. REVIEW OF SYSTEMS: GENERAL: Positive for low grade fever, no chills or rigors. He is not anorexic or losing weight. SKIN: No rashes or lesions. No history of dermatoses. HEAD, EYES, EARS, NOSE, AND THROAT: Negative for headaches, lightheadedness or dizziness. No visual or hearing deficit. No sinus symptoms, sore throat or dysphagia. LYMPH: Positive for lymphadenopathy related to his lymphoproliferative disorder. Responding well to current chemotherapeutic regimen. CARDIAC: Negative for angina or palpitations. No history of coronary artery disease. PULMONARY: Negative for COPD. No shortness of breath, dyspnea or orthopnea. No cough or hemoptysis. GASTROINTESTINAL: Negative for abdominal pain, nausea, vomiting, diarrhea or constipation, hematochezia or melanotic stools. GENITOURINARY: Recent diagnosis superficial bladder cancer status post BCG therapy, and no hematuria, dysuria, urinary incontinence. PSYCHIATRIC: Positive for anxiety by history. ENDOCRINE: Negative for diabetes or thyroid disease. NEUROLOGIC: Negative for seizure, stroke, or migraine headache. HEMATOLOGIC: As per HPI. Currently under treatment for CLL. PHYSICAL EXAMINATION: GENERAL: Very pleasant but anxious 61-year-old gentleman in no acute distress. VITAL SIGNS: Temperature 37.4, pulse 110, respirations 16, blood pressure 115/67. SKIN: Warm, dry, noncyanotic without petechia, rash or ecchymosis. HEAD: Head is atraumatic, normocephalic. EYES: PERRLA, EOMI. Sclerae nonicteric. No conjunctival injection. Nares patent without rhinorrhea or discharge. Throat is clear. No buccal lesions or ulcerations. No evidence of thrush. NECK: Supple. He has palpable shotty cervical and supraclavicular adenopathy. HEART: Regular rate and rhythm. No clicks, rubs, murmurs, gallops. LUNGS: Clear to auscultation bilaterally. ABDOMEN: Soft, nontender, nondistended, without palpable hepatosplenomegaly. EXTREMITIES: No calf tenderness or swelling. No clubbing, cyanosis or edema. NEUROLOGICALLY EXAMINATION: Awake, alert and oriented x3. Cranial nerves II-XII are intact. No motor or sensory deficits noted. LABORATORY DATA: WBC count 6190, hemoglobin 12.0, platelet count 64,000, neutrophils 3310. Sodium 139, potassium 3.9, chloride 104, carbon dioxide 27, BUN 15, creatinine 0.93. Microbiology: Blood cultures pending. IMPRESSION: 1. Adverse chemotherapeutic effect. 2. Chronic lymphocytic leukemia. 3. Bladder cancer. PLAN: Adriano is a pleasant and anxious 61-year-old gentleman well known to [facility], currently under my care for CLL. He was in the office yesterday and received his second course of a combination bendamustine and rituximab. In the midst of receiving treatment yesterday I advised him to call the service if he developed a low grade fever which is commonly associated with bendamustine. Adriano has no other constitutional symptoms. He feels well and fever has subsided. I spoke to his hospitalist, Dr. Miles, and advised him to continue observation over the next 24 hours and if medically stable proceed with discharge. His neutrophil count is actually adequate at this time. I will schedule him for followup prior to his next cycle of treatment. I agree with current medical management. I suspect blood cultures will porcelain turner to be negative. Again, if he is medically stable by tomorrow morning I see no problem with proceeding with discharge. Thank you very much for allowing me to participate in his care. If you have any questions or concerns, feel free to call me at any time.
[2016-12-06] MEDS ORDERED: POLYETHYLENE (MIRALAX) 17 GM PACK PO STA (10:37)
[2016-12-06] MEDS ORDERED: DOCUSATE SODIUM 100 MG CAP PO ONE (10:45)
--- NOTE | 2016-12-06 10:47 | Progress Note ---
Subjective Date of Service: Dec 06, 2016. Subjective Pt evaluation today including: conversation w/ patient, physical exam, chart review, lab review, review of studies, conversation w/ industrial rehabilitation consultant, review of inpatient medication list moderate to severe headache, comes and goes, no vision changes, has been several days, no n/v, Problem List Medical Problems: (1) CLL (chronic lymphocytic leukemia) Status: Acute (2) Tachycardia Status: Acute Review of Systems Constitutional: No chills, No fatigue, No fever, No problem reported, No sweats , No weakness, No weight loss Eyes: No diplopia, No discharge, No eye pain, No redness, No worsening of vision ENT: No dental problems, No hearing loss, No nasal symptoms, No sore throat, No tinnitus, No trouble swallowing, No unusual epistaxis Respiratory: No cough, No dyspnea at rest, No dyspnea on exertion, No hemoptysis, No shortness of breath, No sputum, No wheezing Cardiac: No PND, No chest pain, No claudication, No edema, No orthopnea, No palpitations Abdomen: No constipation, No diarrhea, No nausea, No pain, No vomiting Musculoskeletal: No calf pain, No joint pain, No muscle pain, No swelling Male : No dysuria, No hematuria, No incontinence, No nocturia more than once/ night, No slowing stream, No urinary frequency Neurologic: No balance problems, No memory loss, No numbness/tingling, No paralysis, No vertigo, No weakness Psychiatric: No anhedonism, No anxiety, No depression symptoms, No insomnia, No substance abuse Heme: No abnormal bleeding/bruising, No clotting problems, No night sweats, No swollen lymph nodes Endo: No excessive thirst, No excessive urination, No fatigue Skin: No bleeding, No color change, No itch, No new/changing skin lesions, No rash Objective Vital Signs Date Time Temp Pulse Resp B/P Pulse Ox O2 Delivery O2 Flow Rate FiO2 12/06/16 07:42 37.4 110 16 115/67 93 Room Air 12/06/16 06:30 37.4 111 18 114/68 98 Room Air 12/06/16 06:04 112 12/06/16 05:56 113 20 105/66 95 Room Air 12/06/16 05:02 37.6 111 16 109/64 95 Room Air 12/06/16 03:29 117 20 126/71 94 Room Air 12/06/16 02:58 120 12/06/16 02:21 37.9 132 20 141/78 97 Room Air Physical Exam General Appearance: WD/WN, no apparent distress, + thin Eyes: normal inspection, PERRL, EOMI, sclerae normal ENT: normal ENT inspection, hearing grossly normal, pharynx normal Neck: supple, no adenopathy, thyroid normal, no JVD, no carotid bruits, trachea midline Respiratory/Chest: chest non-tender, lungs clear, normal breath sounds, no respiratory distress, no accessory muscle use Cardiovascular: regular rate, rhythm, no edema, no gallop, no JVD, no murmur Abdomen: normal bowel sounds, non tender, soft, no organomegaly, no pulsatile mass Extremities: normal range of motion, non-tender, normal inspection, no pedal edema, no calf tenderness, normal capillary refill, pelvis stable Neurologic/Psychiatric: cio II-XII nml as tested, no motor/sensory deficits, alert, normal mood/affect, oriented x 3 Skin: normal color, warm/dry, no rash Lymphatic: no adenopathy Laboratory Results Last 24 Hours Test 12/06/16 02:35 12/06/16 02:38 12/06/16 02:42 12/06/16 02:44 Influenza Type A (RT-PCR) Neg for Influ A Influenza Type A Antigen Neg for Influ A Influenza Type B Antigen Neg for Influ B Influenza Type B (RT-PCR) Neg for Influ B White Blood Count 6.19 K/uL Red Blood Count 3.74 M/uL Hemoglobin 12.0 g/dL Hematocrit 35.8 % Mean Corpuscular Volume 95.7 fL Mean Corpuscular Hemoglobin 32.1 pg Mean Corpuscular Hemoglobin Concent 33.5 g/dl Platelet Count 64 K/uL Mean Platelet Volume 10.4 fL RDW Standard Deviation 50.7 fL RDW Coefficient of Variation 14.4 % Neutrophils % (Manual) 53.4 % Lymphocytes % (Manual) 37.1 % Prolymphocyte % 7.8 % Basophils % (Manual) 1.7 % Neutrophils # (Manual) 3.31 K/uL Total Absolute Neutrophils 3.31 K/uL Lymphocytes # (Manual) 2.30 K/uL Prolymphocyte # 0.48 K/uL Total Absolute Lymphocytes 2.30 K/uL Basophils # (Manual) 0.11 K/uL Large Platelets 1+ Prothrombin Time 11.5 SECONDS Prothromb Time International Ratio 1.1 Activated Partial Thromboplast Time 24.0 SECONDS Partial Thromboplastin Ratio 0.9 Sodium Level 139 mmol/L Potassium Level 3.9 mmol/L Chloride Level 104 mmol/L Carbon Dioxide Level 27 mmol/L Anion Gap 8.0 mmol/L Blood Urea Nitrogen 15 mg/dl Creatinine 0.93 mg/dl Est Creatinine Clear Calc Drug Dose 75.9 ml/min Estimated GFR () 103.1 Estimated GFR (Non- 88.9 BUN/Creatinine Ratio 16.0 Random Glucose 101 mg/dl Calcium Level 8.3 mg/dl Magnesium Level 1.6 mg/dl Total Bilirubin 0.6 mg/dl Direct Bilirubin 0.2 mg/dl Aspartate Amino Transf (AST/SGOT) 33 U/L Alanine Aminotransferase (ALT/SGPT) 34 U/L Alkaline Phosphatase 58 U/L Total Creatine Kinase 48 U/L Creatine Kinase MB 0.5 ng/ml Creatine Kinase MB Ratio 1.0 Total Protein 6.9 gm/dl Albumin 4.0 gm/dl Lipase 101 U/L Bedside Troponin I 0.000 ng/ml Bedside Lactic Acid Venous 1.92 mmol/L Test 12/06/16 03:11 12/06/16 07:55 12/06/16 10:33 Urine Color YELLOW Urine Appearance CLOUDY Urine pH 5.0 Urine Specific [place] 1.022 Urine Protein NEG Urine Glucose (UA) NEG Urine Ketones NEG Urine Occult Blood NEG Urine Nitrite NEG Urine Bilirubin NEG Urine Urobilinogen NEG Urine Leukocyte Esterase NEG Urine WBC (Auto) 1-5 /hpf Urine RBC (Auto) 0-4 /hpf Urine Hyaline Casts (Auto) 1-5 /lpf Urine Epithelial Cells (Auto) 10-20 /lpf Urine Bacteria (Auto) NEG Lactic Acid Level 1.5 mmol/L Assessment and Plan 61 y/o M admitted because of Fever on 12/06/2016 pt has chronic lymphocytic leukemia and superficial bladder cancer. He was seen by Dr. Payne 1 days prior to this admission receiving his second course of bendamustine and rituximab. Fever, Meets sirs criteria not neutropenic but will treat as such U/A clear Chest Xray with scarring on the right and possible development of consolidation L>R Blood cultures pending cont empiric coverage with Levaquin, Zosyn and Vancomycin CT chest and abdomen reviewed from 09/26. numerous enlarged LN, cirrhotic liver, esophageal varices, splenomegaly d/w Oncology headache, cont current meds, and brain mrI b/c hx of chronic lymphocytic leukemia and superficial bladder cancer. Glaucoma, cont current meds constipation: colace ordered gi and dvt px Continued [facility] stay due to: multiple IV medications needed Discharge planning: home
[2016-12-06 11:16] VITALS: BP 112/69; PULSE 95; TEMP 37.8; O2SAT 96
[2016-12-06] MEDS ORDERED: GADAVIST IV PRN (13:00)
--- NOTE | 2016-12-06 13:15 | DIAGNOSTIC IMAGING REPORT ---
MRI OF THE BRAIN COMBO CLINICAL HISTORY: Headache. Reported history of CLL. COMPARISON STUDY: No priors. TECHNIQUE: MRI of the brain was performed utilizing various T1 and T2-weighted sequences in the axial, sagittal, and coronal planes. Contrast-enhanced sequences were acquired following the administration of 6 cc of Gadavist. FINDINGS: Brain parenchyma: There is minimal periventricular microangiopathic change. The brain parenchyma is otherwise normal in appearance. There is no hemorrhage or mass effect. There is no restricted diffusion to suggest acute ischemia. No enhancing mass lesion is identified on the postcontrast images. Choe-white matter differentiation is preserved. No extra-axial fluid collection is seen. The cerebellar tonsils are normal in configuration. Ventricles, sulci, and cisterns: Normal in configuration. Pituitary and sella: Unremarkable. Intracranial vasculature: Normal flow voids are maintained at the skull base. Orbits: The bony orbits are grossly intact. Orbital contents are normal in appearance. Sinuses and mastoids: The paranasal sinuses are clear. There is trace left mastoid effusion. The right mastoid air cells are clear. Calvarium: Marrow signal intensity throughout the calvarium and the partially imaged cervical cord is heterogeneous and diffusely diminished. No clear destructive lesion is identified. Cervical cord: Partially visualized cervical spinal cord is normal in morphology and signal intensity. IMPRESSION: 1. No acute intracranial abnormality. 2. Marrow signal intensity is heterogeneous and diffusely diminished throughout the visualized bony structures. No clear destructive lesion is seen. This may be related to the reported history of CLL and clinical correlation will be required. Electronically signed by: Jones Tadeo M.D. 12/06/2016 1:13 PM Dictated Date/Time: 12/06/2016 1:07 PM
[2016-12-06] MEDS: PIPERACILL/TAZOBAC IV 3.375 GM in DEXTROSE 5% 100ML 100 ML IV SCH ×2 (14:07→21:39)
[2016-12-06 15:06] VITALS: BP 118/71; PULSE 119; TEMP 38.5; O2SAT 96
[2016-12-06] MEDS: ACETAMINOPHEN 325 MG TAB PO PRN ×2 (16:39→23:13)
[2016-12-06] MEDS: VANCOMYCIN INJ 1,150 MG in SODIUM CHLORIDE 0.9% 250ML 250 ML IV SCH (18:08)
[2016-12-06 19:45] VITALS: BP 112/73; PULSE 94; TEMP 36.9; O2SAT 98
[2016-12-06] MEDS ORDERED: TRAVOPROST Z 0.004% OPH SOLN 2.5 ML BTL OPB SCH (21:00)
[2016-12-06] MEDS: LATANOPROST 0.005% OP SOLN 2.5 ML BTL OPB SCH (21:05)
[2016-12-06] MEDS: DOCUSATE SODIUM 100 MG CAP PO SCH (21:05)
[2016-12-06] MEDS: ONDANSETRON INJ 2 MG/ML 2 ML VIAL IV PRN (23:12)
[2016-12-06 23:52] VITALS: BP 116/93; PULSE 120; TEMP 39.2; O2SAT 95
[2016-12-07] MEDS ORDERED: LEVOFLOXACIN / D5W 750 MG in PREMIXED IN D5W 150 ML IV SCH (04:00)
[2016-12-07] MEDS: SODIUM CHLORIDE 0.9% 1000ML 1,000 ML IV SCH (04:19)
[2016-12-07 04:20] VITALS: BP 99/63; PULSE 95; TEMP 36.5; O2SAT 96
[2016-12-07] MEDS: VANCOMYCIN INJ 1,150 MG in SODIUM CHLORIDE 0.9% 250ML 250 ML IV SCH (06:02)
[2016-12-07] MEDS: PIPERACILL/TAZOBAC IV 3.375 GM in DEXTROSE 5% 100ML 100 ML IV SCH (06:02)
[2016-12-07] MEDS: OXYCODONE HCL IR 5 MG TAB (IMMEDIATE RELEASE) PO PRN ×5 (06:03→23:14)
[2016-12-07 06:42] VITALS: BMI 20.9
[2016-12-07 07:19] LABS: HEMATOCRIT 32.7 % (42-52); MEAN CORPUSCULAR HEMOGLOBIN 32.6 pg (25-34); MEAN CORPUSCULAR HGB CONC 33.6 g/dl (32-36); RED BLOOD COUNT 3.37 M/uL (4.7-6.1); WHITE BLOOD COUNT 3.92 K/uL (4.8-10.8)
[2016-12-07 07:36] LABS: BASO % 0.3 %; BASO ABS # 0.01 K/uL (0-0.2); COMPLETE YES; EOS % 3.3 %; IG% 0.3 %; LYMPH % 49.5 %; LYMPH ABS # 1.94 K/uL (1.2-3.4); MEAN PLATELET VOLUME 11.2 fL (7.4-10.4); MONO % 5.6 %; PLATELET COUNT 40 K/uL (130-400)
[2016-12-07 07:52] LABS: BUN/CREATININE RATIO 13.8 (10-20); CALCIUM 7.4 mg/dl (8.5-10.1); CREATININE 0.89 mg/dl (0.60-1.40); MAGNESIUM 2.1 mg/dl (1.8-2.4); POTASSIUM 3.7 mmol/L (3.5-5.1)
[2016-12-07 07:57] LABS: ALB/GLOB RATIO 1.1 (0.9-2)
[2016-12-07] MEDS: LACTOBACILLUS ACIDOPHILUS (FLORANEX) TAB PO SCH (07:59)
[2016-12-07 08:01] VITALS: BP 105/64; PULSE 113; TEMP 37.2; O2SAT 96
[2016-12-07] MEDS: ENOXAPARIN 40 MG/0.4 ML SYR SQ SCH (08:01)
[2016-12-07] MEDS: LORAZEPAM 0.5 MG TAB PO PRN ×2 (08:04→23:14)
[2016-12-07] MEDS: DOCUSATE SODIUM 100 MG CAP PO SCH ×2 (08:43→20:16)
--- NOTE | 2016-12-07 08:43 | HEME/ONC PROGRESS NOTE ---
DATE: 12/07/2016 DATE: 12/07/2016. DIAGNOSES: 1. Low grade fever. 2. Adverse chemotherapeutic effect. 3. Chronic lymphocytic leukemia. HOSPITAL COURSE: Mr. Amaya is a pleasant 61-year-old gentleman who suffers from concurrent chronic lymphocytic leukemia and superficial bladder cancer. On the day prior to admission had received his second cycle of bendamustine and rituximab. Shortly thereafter developed low grade fever and proceeded to the Emergency Room. Clinically, today doing much better however since initiation of antibiotics now has developed a maculopapular rash involving his trunk and proximal upper extremities. Rash currently is nonpruritic. He is otherwise eating and drinking. He has been devoid of further fever symptoms. Thus far blood cultures are negative. PHYSICAL EXAMINATION: GENERAL: He is in no acute distress. VITAL SIGNS: Temperature 37.2, pulse 113, blood pressure 105/64, respiratory rate 20. SKIN: Again, maculopapular rash encompassing anterior trunk and proximal upper extremities. HEAD, EYES, EARS, NOSE, AND THROAT: Oral mucosa without erythema or ulceration. HEART: Regular rate and rhythm. LUNGS: Clear to auscultation bilaterally. ABDOMEN: Soft, nontender, nondistended. EXTREMITIES: No clubbing, cyanosis or edema. NEUROLOGIC EXAMINATION: Grossly intact. LABORATORY DATA: WBC count 3920, hemoglobin 11, platelet count 40,000. Chemistries: Sodium 140, potassium 3.7, chloride 107, carbon dioxide 26, creatinine 0.89, BUN 12, albumin 2.7, total bilirubin 2.1. IMPRESSION: 1. Low-grade fever secondary to chemotherapeutic effect. 2. Anemia/thrombocytopenia again secondary to chemotherapeutic effect. 3. Chronic lymphocytic leukemia. 4. Maculopapular drug rash. 5. Hypoalbuminemia. PLAN: Mr. Amaya was admitted yesterday with low grade fever. Cultures thus far have been negative and I believe he has developed a rash secondary to antibiotics. Therefore, if cultures remain negative, would discontinue antibiotics and proceed to discharge home unless there is another medical concern to keep him inpatient. Followup has already been established. He will be seen prior to his next cycle of chemotherapy. Will continue to monitor his peripheral blood counts and support via transfusion if platelet count falls below 15,000. Thank you again for allowing me to participate in his care. If you have any questions or concerns, feel free to contact me at any time.
[2016-12-07] MEDS ORDERED: HYDROCORTISONE 1% OINT 30 GM TUBE EXT PRN (09:30)
[2016-12-07] MEDS ORDERED: DiphenhydrAMINE HCL 50 MG/ML VIAL IV ONE (09:45)
--- NOTE | 2016-12-07 11:09 | Progress Note ---
Subjective Date of Service: Dec 07, 2016. Subjective Pt evaluation today including: conversation w/ patient, physical exam, chart review, lab review, review of studies, conversation w/ loans consultant, review of inpatient medication list Voiding: no voiding problems had high fever MAXIMUM TEMPERATURE 39.2 yesterday, this morning had to be fused hope for the skin rash associated with itching anxiety and uncomfortable Problem List Medical Problems: (1) CLL (chronic lymphocytic leukemia) Status: Acute (2) Tachycardia Status: Acute Review of Systems Constitutional: + fatigue, + fever, No chills, No problem reported, No sweats, No weakness, No weight loss Eyes: No diplopia, No discharge, No eye pain, No redness, No worsening of vision ENT: No dental problems, No hearing loss, No nasal symptoms, No sore throat, No tinnitus, No trouble swallowing, No unusual epistaxis Respiratory: No cough, No dyspnea at rest, No dyspnea on exertion, No hemoptysis, No shortness of breath, No sputum, No wheezing Cardiac: No PND, No chest pain, No claudication, No edema, No orthopnea, No palpitations Abdomen: No constipation, No diarrhea, No nausea, No pain, No vomiting Musculoskeletal: No calf pain, No joint pain, No muscle pain, No swelling Male : No dysuria, No hematuria, No incontinence, No nocturia more than once/ night, No slowing stream, No urinary frequency Neurologic: No balance problems, No memory loss, No numbness/tingling, No paralysis, No vertigo, No weakness Psychiatric: No anhedonism, No anxiety, No depression symptoms, No insomnia, No substance abuse Heme: No abnormal bleeding/bruising, No clotting problems, No night sweats, No swollen lymph nodes Endo: No excessive thirst, No excessive urination, No fatigue Skin: + rash, No bleeding, No color change, No itch, No new/changing skin lesions Objective Vital Signs Date Time Temp Pulse Resp B/P Pulse Ox O2 Delivery O2 Flow Rate FiO2 12/07/16 08:01 37.2 113 20 105/64 96 Room Air 12/07/16 04:20 36.5 95 16 99/63 96 Room Air 12/07/16 01:47 Room Air 12/06/16 23:52 39.2 120 18 116/93 95 Room Air 12/06/16 19:45 36.9 94 18 112/73 98 Room Air 12/06/16 16:30 Room Air 12/06/16 15:06 38.5 119 18 118/71 96 Room Air 12/06/16 11:16 37.8 95 17 112/69 96 Room Air Physical Exam General Appearance: WD/WN, no apparent distress, + thin, + pertinent finding ( anxious) Eyes: normal inspection, PERRL, EOMI, sclerae normal ENT: normal ENT inspection, hearing grossly normal, pharynx normal Neck: supple, no adenopathy, thyroid normal, no JVD, no carotid bruits, trachea midline Respiratory/Chest: chest non-tender, lungs clear, normal breath sounds, no respiratory distress, no accessory muscle use Cardiovascular: regular rate, rhythm, no edema, no gallop, no JVD, no murmur Abdomen: normal bowel sounds, non tender, soft, no organomegaly, no pulsatile mass Extremities: normal range of motion, non-tender, normal inspection, no pedal edema, no calf tenderness, normal capillary refill, pelvis stable 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, no motor/sensory deficits, alert, normal mood/affect, oriented x 3 Skin: normal color, warm/dry, no rash, + rash Lymphatic: no adenopathy Laboratory Results Last 24 Hours Test 12/07/16 06:17 White Blood Count 3.92 K/uL Red Blood Count 3.37 M/uL Hemoglobin 11.0 g/dL Hematocrit 32.7 % Mean Corpuscular Volume 97.0 fL Mean Corpuscular Hemoglobin 32.6 pg Mean Corpuscular Hemoglobin Concent 33.6 g/dl Platelet Count 40 K/uL Mean Platelet Volume 11.2 fL Neutrophils (%) (Auto) 41.0 % Lymphocytes (%) (Auto) 49.5 % Monocytes (%) (Auto) 5.6 % Eosinophils (%) (Auto) 3.3 % Basophils (%) (Auto) 0.3 % Neutrophils # (Auto) 1.61 K/uL Lymphocytes # (Auto) 1.94 K/uL Monocytes # (Auto) 0.22 K/uL Eosinophils # (Auto) 0.13 K/uL Basophils # (Auto) 0.01 K/uL RDW Standard Deviation 52.9 fL RDW Coefficient of Variation 14.9 % Immature Granulocyte % (Auto) 0.3 % Immature Granulocyte # (Auto) 0.01 K/uL Sodium Level 140 mmol/L Potassium Level 3.7 mmol/L Chloride Level 107 mmol/L Carbon Dioxide Level 26 mmol/L Anion Gap 7.0 mmol/L Blood Urea Nitrogen 12 mg/dl Creatinine 0.89 mg/dl Est Creatinine Clear Calc Drug Dose 77.8 ml/min Estimated GFR () 107.7 Estimated GFR (Non- 92.9 BUN/Creatinine Ratio 13.8 Random Glucose 117 mg/dl Calcium Level 7.4 mg/dl Magnesium Level 2.1 mg/dl Total Bilirubin 2.1 mg/dl Aspartate Amino Transf (AST/SGOT) 27 U/L Alanine Aminotransferase (ALT/SGPT) 53 U/L Alkaline Phosphatase 54 U/L Total Protein 5.1 gm/dl Albumin 2.7 gm/dl Globulin 2.4 gm/dl Albumin/Globulin Ratio 1.1 Assessment and Plan 61 y/o M admitted because of Fever on 12/06/2016 High grade fever, etiology unknown, however likely secondary to chemotherapeutic effect. Anemia/thrombocytopenia secondary to chemotherapeutic effect. hx of chronic lymphocytic leukemia and superficial bladder cancer. He was seen by Dr. Payne 1 days prior to this admission receiving his second course of bendamustine and rituximab. Fever, Meets sirs criteria, blood culture so far negative, however is continue spiking high fever, we'll follow-up blood culture until 48 hour not neutropenic but will treat as such U/A clear Chest Xray with scarring on the right and possible development of consolidation L>R, patient has no cough Has been on empiric coverage with Levaquin, Zosyn and Vancomycin, will discontinue medication of IV antibiotics for now because of rash, CT chest and abdomen reviewed from 09/26. numerous enlarged LN, cirrhotic liver, esophageal varices, splenomegaly d/w Oncology headache, cont current meds, and brain MRI was done b/c hx of chronic lymphocytic leukemia and superficial bladder cancer, which was not significant Glaucoma, cont current meds constipation: colace ordered Skin rashes likely from antibiotic reaction, give oral prednisone, Benadry IV 1, plus oral Benadryl as needed Patient continues spiking fever up to 39.2, I don't believe is a low- fever, and he develops diffuse whole-body rash is very uncomfortable, I will keep him here continue observation, don't feel ready to do him go home gi and dvt px Continued [facility] stay due to: home environment unsafe for pt Discharge planning: home
[2016-12-07 11:43] VITALS: BP 107/73; PULSE 103; TEMP 37.3; O2SAT 97
[2016-12-07 11:52] LABS: C-REACTIVE PROT HIGHSEN 19.9 MG/L
[2016-12-07 13:37] LABS: SMUDGE CELLS PRESENT
[2016-12-07 15:51] VITALS: BP 116/75; PULSE 98; TEMP 36.8; O2SAT 97
[2016-12-07] MEDS ORDERED: DICLOFENAC SOD 1% GEL 100 GM TUBE EXT PRN (16:00)
[2016-12-07 19:39] VITALS: BP 121/79; PULSE 95; TEMP 36.5; O2SAT 94
[2016-12-07] MEDS: LATANOPROST 0.005% OP SOLN 2.5 ML BTL OPB SCH (20:17)
[2016-12-07] MEDS: ONDANSETRON INJ 2 MG/ML 2 ML VIAL IV PRN (20:56)
[2016-12-07 23:55] VITALS: BP 116/73; PULSE 97; TEMP 36.6; O2SAT 96
[2016-12-08 04:13] VITALS: BP 114/72; PULSE 81; TEMP 36.5; O2SAT 96
[2016-12-08 05:21] VITALS: Ht 172.7 cm; Wt 61.1 kg
[2016-12-08] MEDS ORDERED: VANCOMYCIN TROUGH SCH (05:30)
[2016-12-08] MEDS: OXYCODONE HCL IR 5 MG TAB (IMMEDIATE RELEASE) PO PRN ×4 (05:38→18:43)
[2016-12-08 06:27] LABS: CREATININE 0.77 mg/dl (0.60-1.40)
[2016-12-08 07:15] VITALS: BP 102/61; PULSE 91; TEMP 36.5; O2SAT 97
[2016-12-08] MEDS: ENOXAPARIN 40 MG/0.4 ML SYR SQ SCH (09:07)
[2016-12-08] MEDS: LORAZEPAM 0.5 MG TAB PO PRN ×2 (09:09→18:42)
[2016-12-08] MEDS: ACETAMINOPHEN 325 MG TAB PO PRN (09:10)
[2016-12-08] MEDS: DOCUSATE SODIUM 100 MG CAP PO SCH (09:27)
[2016-12-08] MEDS ORDERED: [UNRECOGNIZED DRUG - CODE] EXT (10:05)
[2016-12-08] MEDS ORDERED: PRD20 PO (10:05)
[2016-12-08] MEDS ORDERED: DIPH25CA50 PO (10:05)
--- NOTE | 2016-12-08 10:07 | Discharge Instructions ---
Discharge Instructions Date of Service Dec 08, 2016. Admission Reason for Admission: Cll, Fever Discharge Discharge Diagnosis / Problem: fever secondary to chemotherapeutic effect. Discharge Goals Goal(s): Decrease discomfort, Improve function, Increase independence, Improve disease control, Improve nutritional status, Learn about illness, Diagnostic testing, Therapeutic intervention, Screening, Prevent Disease Progression, Specific goals Activity Recommendations Activity Limitations: resume your previous activity Lifting Limitations: none Exercise/Sports Limitations: none May Resume Sexual Activity: when tolerated . Instructions / Follow-Up Instructions / Follow-Up you have High grade fever episode, etiology unknown, however likely secondary to chemotherapeutic effect. you ahve Anemia/thrombocytopenia secondary to chemotherapeutic effect. you have history x of chronic lymphocytic leukemia and superficial bladder cancer. you need to follow up with Dr. Payne as instructed Skin rashes likely from antibiotic reaction, likely from Levaquin, you rallergy profile has updated continue oral prednisone, Benadry oral as needed, do not drive while you are on Benadryl - you need to follow up with your primary care physician in 1 week, - take medication as instructed, never overdose or any misuse, or take with alcohol, because misuse of medicine may cause organ damage or , call your primary care physician if have questions of medicaitons. - call your primary care physician OR go to local emergency room if has any fever/chill, chest pain, shortness of breathing, nausea/vomiting/abdominal pain , facial droop/slurry speech/local weakness, or if has any questions. - fall precaution - diet as instructed - you need to follow up with your subspecialist as instructed - you should understand that it is important to follow up the above instruction , and "not following the above instruction" may cause delayed or missed care of your medical conditions which may cause permanent organ damage and even . Current Hospital Diet Patient's current hospital diet: Regular Diet Discharge Diet Recommended Diet: Regular Diet Pending Studies Studies pending at discharge: no Laboratory Results Meds Administered (Past 24Hrs) Medications (Trade) Dose Ordered Sig/Arthur Route Start Time Stop Time Status Last Admin Dose Admin Latanoprost 1 drops 1 drops HS OPB 12/06/16 21:00 01/05/17 20:59 12/07/16 20:17 1 DROPS Levofloxacin 750 mg/Prmx 150 ml @ 100 mls/hr DAILY@0400 IV 12/07/16 04:00 12/07/16 09:26 DC 12/07/16 04:19 100 MLS/HR Piperacillin Sod/ Tazobactam Sod 3.375 gm/Dextrose 115 ml @ 28.75 mls/ hr Q8@0600,1400,2200 IV 12/06/16 14:00 12/07/16 09:26 DC 12/07/16 06:02 28.75 MLS/HR Vancomycin HCl/ Sodium Chloride (Vancomycin Inj/ Nss 250ml) 273 ml @ 125 mls/hr Q12H IV 12/06/16 18:00 12/07/16 09:26 DC 12/07/16 06:02 125 MLS/HR Docusate Sodium (coLACE CAP) 100 mg BID PO 12/06/16 20:00 01/05/17 19:59 12/08/16 09:27 100 MG Docusate Sodium (coLACE CAP) 100 mg NOW ONCE PO 12/06/16 10:45 12/06/16 11:03 DC 12/06/16 11:41 100 MG Polyethylene (Miralax Powder Packet) 17 gm NOW STAT PO 12/06/16 10:37 12/06/16 11:03 DC 12/06/16 11:41 17 GM Diphenhydramine HCl (Benadryl Inj) 25 mg NOW ONCE IV 12/07/16 09:45 12/07/16 09:46 DC 12/07/16 10:13 25 MG Prednisone (PredniSONE TAB) 40 mg Q12 PO 12/07/16 10:00 01/06/17 09:59 12/08/16 09:07 40 MG Medical Emergencies . Who to Call and When: Medical Emergencies: If at any time you feel your situation is an emergency, please call 911 immediately. . Non-Emergent Contact Non-Emergency issues call your: Primary Care Provider, Oncologist . . "Provider Documentation" section prepared by Justice Miles. VTE Core Measure Inpt VTE Proph given/why not?: Enoxaparin (Lovenox)SQ
--- NOTE | 2016-12-08 10:18 | Discharge Summary ---
Discharge Summary Date of Service Dec 08, 2016. Discharge Summary Admission Date: Dec 06, 2016 at 05:09 Discharge Date: Dec 08, 2016 Discharge Disposition: retirement facility Principal Diagnosis: high grade fever episode, e likely secondary to chem Problems/Secondary Diagnoses: Anemia/thrombocytopenia secondary to chemotherapeutic effect. history x of chronic lymphocytic leukemia and superficial bladder cancer. Skin rashes likely from antibiotic reaction, likely from Levaquin, you allergy profile has updated Immunizations: Have You Had Influenza Vaccine: No History of Tetanus Vaccine?: Unknown History of Pneumococcal: No History of Hepatitis B Vaccine: Unknown Procedures: no Consultations: onco Medication Reconciliation New Medications: Diphenhydramine HCl (Diphenhydramine HCl) 25 Mg Cap 25 MG PO Q8 PRN for itching for 3 Days, #9 CAP Hydrocortisone (Sm Hydrocortisone Maximum) 90 Appln/30 Gm Oint 1 APPLN EXT Q12 PRN for itching for 5 Days, #1 Prednisone (Prednisone) 20 Mg Tab 40 MG PO Q12 for 5 Days, #10 TAB For Initial Treatment Continued Medications: Albuterol Hfa (Ventolin Hfa) 200 Puffs/65652 Mcg Aers 2 PUFFS PO DAILY PRN for Shortness of Breath Fluticasone Propionate (Flovent Hfa) 120 Puffs/75844 Mcg Aero 1 PUFFS INH DAILY PRN for Shortness of Breath for 30 Days, #1 INHALER 3 Refills Latanoprost (Latanoprost) 37 Drops/2.5 Ml Soln 1 DROP OPB HS Lorazepam (Ativan) 0.5 Mg Tab 0.5 MG PO QID PRN for Anxiety Oxycodone Hcl (Oxycodone Hcl) 10 Mg Tab 1 TAB PO q4-6 hrs PRN for Pain, #150 Discharge Exam doing well, no fever Review of Systems: Constitutional: No chills, No fatigue, No fever, No problem reported, No sweats, No weakness, No weight loss Respiratory: No cough, No dyspnea at rest, No dyspnea on exertion, No hemoptysis, No problem reported, No shortness of breath, No sputum, No wheezing Cardiovascular: No PND, No chest pain, No claudication, No edema, No orthopnea, No palpitations, No problem reported Abdomen: No GI bleeding, No constipation, No diarrhea, No nausea, No pain, No problem reported, No vomiting Musculoskeletal: No calf pain, No joint pain, No muscle pain, No problem reported, No swelling Genitourinary - Male: No dysuria, No hematuria, No impotence, No lesions, No penile discharge, No problem reported, No urinary frequency, No urinary hesitancy, No urinary incontinence, No urinary retention, No urinary urgency Neurologic: No balance problems, No memory loss, No numbness/tingling, No paralysis, No problem reported, No vertigo, No weakness Psychiatric: No anhedonism, No anxiety, No depression symptoms, No insomnia , No problem reported, No substance abuse Endocrine: No excessive thirst, No excessive urination, No fatigue, No problem reported Hematologic / Lymphatic: No abnormal bleeding/bruising, No clotting problems , No night sweats, No problem reported, No swollen lymph nodes Integumentary: + rash (diffused , whld body, is better than yesterday), No bleeding, No color change, No itch, No new/changing skin lesions, No problem reported Physical Exam: General Appearance: WD/WN, no apparent distress Eyes: normal inspection, PERRL, EOMI ENT: normal ENT inspection, hearing grossly normal, TMs normal, pharynx normal Neck: supple, no adenopathy, no JVD Respiratory/Chest: chest non-tender, lungs clear, normal breath sounds Cardiovascular: regular rate, rhythm, no edema, no gallop, no JVD, no murmur , normal peripheral pulses Abdomen / GI: normal bowel sounds, non tender, soft Extremities: normal inspection, no calf tenderness, normal capillary refill , no pedal edema, normal range of motion 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 continue no fever for around 36 hr, Anemia/thrombocytopenia secondary to chemotherapeutic effect. hx of chronic lymphocytic leukemia and superficial bladder cancer. stable He was seen by Dr. Payne 1 days prior to this admission receiving his second course of bendamustine and rituximab. Fever, Meets sirs criteria upon admission , blood culture so far negative, however is continue spiking high fever, not neutropenic but has been treat as such, iv abx has been DC on yesterday U/A clear Chest Xray with scarring on the right and possible development of consolidation L>R, patient has no cough Has been on empiric coverage with Levaquin, Zosyn and Vancomycin, discontinue medication of IV antibiotics for now because of rash, CT chest and abdomen reviewed from 09/26. numerous enlarged LN, cirrhotic liver, esophageal varices, splenomegaly d/w'ed Oncology headache, cont current meds, and brain MRI was done b/c hx of chronic lymphocytic leukemia and superficial bladder cancer, which was not significant Glaucoma, cont current meds constipation: colace ordered Skin rashes likely from antibiotic reaction, give oral prednisone, Benadry IV 1, plus oral Benadryl as needed which was severe hive, pt got Levaquin, VAnco, and zosyn together for possible possible sepsis from spiking fever while on chemo, developed diffused whole body rashes, d/w pt , the likely possible is from Levaquin, this is also because "had some reaction from Levaquin before", Patient continues spiking fever up to 39.2, I don't believe is a low- fever, and he develops diffuse whole-body rash is very uncomfortable, I will keep him here continue observation, don't feel ready to do him go home Instructions / Follow-Up you have High grade fever episode, etiology unknown, however likely secondary to chemotherapeutic effect. you have Anemia/thrombocytopenia secondary to chemotherapeutic effect. you have history x of chronic lymphocytic leukemia and superficial bladder cancer. you need to follow up with Dr. Payne as instructed Skin rashes likely from antibiotic reaction, likely from Levaquin, you rallergy profile has updated continue oral prednisone, Benadry oral as needed, do not drive while you are on Benadryl - you need to follow up with your primary care physician in 1 week, - take medication as instructed, never overdose or any misuse, or take with alcohol, because misuse of medicine may cause organ damage or , call your primary care physician if have questions of medicaitons. - call your primary care physician OR go to local emergency room if has any fever/chill, chest pain, shortness of breathing, nausea/vomiting/abdominal pain , facial droop/slurry speech/local weakness, or if has any questions. - fall precaution - diet as instructed - you need to follow up with your subspecialist as instructed - you should understand that it is important to follow up the above instruction , and "not following the above instruction" may cause delayed or missed care of your medical conditions which may cause permanent organ damage and even . Total Time Spent: Greater than 30 minutes This includes examination of the patient, discharge planning, medication reconciliation, and communication with other providers. Discharge Instructions Please refer to the electronic Patient Visit Report (Discharge Instructions) for additional information. Additional Copies To Darci Allen PA-C; Adriano Payne D.O.
[2016-12-08 11:12] VITALS: BP 146/73; PULSE 97; TEMP 36.6; O2SAT 96
[2016-12-08 14:37] VITALS: BP 146/73; PULSE 97; TEMP 36.6; O2SAT 96
[2016-12-08 14:51] VITALS: BP 117/73; PULSE 89; TEMP 36.6; O2SAT 95
[2017-04-03] MEDS ORDERED: MULT-506 PO (08:41)
[2017-04-03] MEDS ORDERED: PROC1TAB5 PO (08:41)
[2017-04-03] MEDS ORDERED: DOCU-94 PO (08:41)
[2017-04-16] MEDS ORDERED: SULF800T23 PO (15:25)
== END 2016-12-08 19:05 | disposition home or self-care (01) | DRG 864 ==
LOC: ENRESERVTM → ENRESERVDT → C.EDB 02:18 → C.4E 05:09
PROVIDERS: ADMIT Student in an Organized Health Care Education/Training Program; ATTEND Hospitalist
DX: R50.9 Fever, unspecified (principal); C91.90 Lymphoid leukemia, unspecified not having achieved remission; T45.1X5A Adverse effect of antineoplastic and immunosuppressive drugs, initial encounter; C67.9 Malignant neoplasm of bladder, unspecified; D64.81 Anemia due to antineoplastic chemotherapy; D69.59 Other secondary thrombocytopenia; L27.0 Generalized skin eruption due to drugs and medicaments taken internally; T36.8X5A Adverse effect of other systemic antibiotics, initial encounter; E88.09 Other disorders of plasma-protein metabolism, not elsewhere classified; R51 Headache; K59.00 Constipation, unspecified; F41.9 Anxiety disorder, unspecified; G89.29 Other chronic pain; H40.9 Unspecified glaucoma; Z87.891 Personal history of nicotine dependence; Z82.49 Family history of ischemic heart disease and other diseases of the circulatory system

== ENCOUNTER → 2017-01-12 | Outpatient (CLI) | payer OTHER ==
[~2017-01-12] MED LIST changes: +DIPH25CA50 PO; +DOCU-94 PO; -FLUT220A INH; +FLVHFA110 INH; +MULT-506 PO; +OXYC-164 PO; -OXYC-59 PO; +PRD20 PO; +PROC1TAB5 PO; +SULF800T23 PO; -TRAV0.00 OPB; +XLTOPS OPB; +[UNRECOGNIZED DRUG - CODE] EXT
== END | disposition home or self-care (01) ==
LOC: C.LABSPEC 11:31
PROVIDERS: ATTEND Urology
DX: N40.1 Benign prostatic hyperplasia with lower urinary tract symptoms (principal); C67.9 Malignant neoplasm of bladder, unspecified

== ENCOUNTER → 2017-01-15 | Outpatient (CLI) | payer OTHER ==
[~2017-01-15] MED LIST changes: +OPTIRAY 300 IV PRN
--- NOTE | 2017-01-15 14:20 | DIAGNOSTIC IMAGING REPORT ---
IVP W/OR W/O TOMOGRAMS CLINICAL HISTORY: Bladder carcinoma COMPARISON STUDY: CT scan dated 10/06/2016 FINDINGS: The prosthodontist film reveals no calcification suspicious for renal calculi. Degenerative changes are present within the lumbar spine. The patient was injected with 100 cc of Optiray 300. The 1 minute film reveals prompt bilateral nephrograms. The right kidney measures 13.8 cm in length. The left kidney measures 12.5 cm in length. There is prompt bilateral excretion. Single nondilated ureters drainage kidney. No ureteral filling defects are visualized. No collecting system filling defects are visualized. There are no significant nephrotomographic defects. There is a small post void residual. IMPRESSION: Small post void residual. No collecting system or ureteral masses are visualized. Electronically signed by: Milton Vasquez M.D. 01/15/2017 2:19 PM Dictated Date/Time: 01/15/2017 2:17 PM
== END | disposition home or self-care (01) ==
LOC: C.RAD 12:26
PROVIDERS: ATTEND Urology
DX: C67.9 Malignant neoplasm of bladder, unspecified (principal)

== ENCOUNTER → 2017-03-14 | Outpatient (CLI) | payer OTHER ==
[~2017-03-14] MED LIST changes: +BND25X PO; -DIPH25CA50 PO; -OPTIRAY 300 IV PRN
--- NOTE | 2017-03-14 16:01 | DIAGNOSTIC IMAGING REPORT ---
CHEST 2 VIEWS ROUTINE CLINICAL HISTORY: R05 COUGH WHEEZING COMPARISON STUDY: 12/06/2016 FINDINGS: The cardiac and mediastinal contours remain stable. There is chronic blunting of the right lateral costophrenic angle. There are dense lateral right-sided pleural calcifications, unchanged from the preceding study.[ There is no failure. There is no acute parenchymal consolidation. IMPRESSION: Chronic right-sided pleural calcification. No acute findings. No evidence of failure. No evidence of acute parenchymal consolidation Electronically signed by: Milton Vasquez M.D. 03/14/2017 3:59 PM Dictated Date/Time: 03/14/2017 3:58 PM
== END | disposition home or self-care (01) ==
LOC: C.RAD 15:26
DX: R05 Cough (principal); J94.8 Other specified pleural conditions

== ENCOUNTER → 2017-04-03 | Outpatient (CLI) | payer OTHER ==
[~2017-04-03] MED LIST changes: +OPTIRAY 320 IV PRN
--- NOTE | 2017-04-03 10:58 | DIAGNOSTIC IMAGING REPORT ---
CT OF THE NECK WITH CONTRAST CLINICAL HISTORY: Chronic lymphocytic leukemia. COMPARISON STUDY: Neck CT October 06, 2016. TECHNIQUE: Axial images of the neck were obtained following intravenous injection of 94 cc Optiray 320 IV. FINDINGS: Visualized portions of the intracranial contents are unremarkable. The parotid and submandibular glands are normal. The epiglottis is normal. No mucosal lesion is identified although these may be occult by CT. Numerous enlarged lymph nodes within the neck shown on CT of February or 29/03/2017 have significantly decreased in size since prior exam. An index left level 4 lymph node shown image 178 of 233 now measures 2.3 x 1.1 cm. It previously measured 3.3 x 1.[address] of October 06, 2016. An adjacent left level 4 lymph node measures 1 cm in short axis. This has decreased in size since prior exam. Superior An index left level 2 lymph node shown image 114 now measures 0.5 cm in short axis diameter. It previously measured 1.4 cm. An index left level 1 lymph node shown on image 124 now measures 0.4 cm in short axis diameter. It previously measured 0.9 cm. The chest will be reported separately. Major vasculature of the neck is patent. There are no suspicious osseous lesions. IMPRESSION: Significant interval improvement in cervical lymphadenopathy since CT of October 06, 2016. A few left level 4/supraclavicular lymph nodes remain mildly enlarged but significantly decreased in size since CT of October 06, 2016. Electronically signed by: Derrick Lowe M.D. 04/03/2017 10:57 AM Dictated Date/Time: 04/03/2017 10:47 AM
--- NOTE | 2017-04-03 11:17 | DIAGNOSTIC IMAGING REPORT ---
CT OF THE ABDOMEN AND PELVIS WITH CONTRAST CLINICAL HISTORY: Chronic lymphocytic leukemia. COMPARISON STUDY: CT of the abdomen and pelvis October 06, 2016. TECHNIQUE: Following IV administration of 94 mL of Optiray-320, axial images of the abdomen and pelvis were obtained from the lung bases to the proximal femurs. Images were reviewed in the axial, sagittal, and coronal planes. IV contrast was administered without complication. A dose lowering technique was utilized adhering to the principles of ALARA. Oral contrast was administered. FINDINGS: The chest will be reported separately. The liver is cirrhotic. No hepatic lesions are identified although sensitivity for detection of hypervascular lesions is diminished on this portal venous study. Small paraesophageal varices are again noted. Mild splenomegaly has improved since exam of October 06, 2016. The adrenal glands, kidneys and pancreas are normal. There is no hydronephrosis. There is no evidence for a bowel obstruction. Abdominal and pelvic lymphadenopathy has markedly improved since CT of October 06, 2016. An index left para-aortic lymph node shown image 147 of 446 measures 2 x 0.7 cm. It previously measured 3.5 x 1.6 cm. An index left external iliac lymph node shown on image 347 measures 0.7 cm in short axis diameter. It previously measured 1.3 cm. No pathologically enlarged abdominal or pelvic lymph nodes are present. No suspicious skeletal lesions are identified. IMPRESSION: 1. Interval resolution of abdominal and pelvic lymphadenopathy since CT of October 06, 2016. 2. Mild splenomegaly, improved since prior CT. 3. Cirrhosis with small upper abdominal varices. Electronically signed by: Derrick Lowe M.D. 04/03/2017 11:15 AM Dictated Date/Time: 04/03/2017 11:06 AM
--- NOTE | 2017-04-03 11:30 | DIAGNOSTIC IMAGING REPORT ---
CT OF THE CHEST WITH IV CONTRAST CLINICAL HISTORY: Chronic lymphocytic leukemia. COMPARISON STUDY: Chest CT October 06, 2016. TECHNIQUE: Following IV administration of 94 mL of Optiray-320, helical axial images of the chest were obtained. Sagittal and coronal reconstructions were viewed as well as maximal intensity projections on an independent 3-D workstation. A dose lowering technique was utilized adhering to the principles of ALARA. CT DOSE: 929.90 mGy.cm FINDINGS: A mildly enlarged left supraclavicular/level 4 cervical lymph node has decreased in size since chest CT of October 06, 2016. It now measures 2.4 x 0.9 cm. It previously measured 3.6 x 1.5 cm. The enlarged bilateral axillary, mediastinal and hilar lymph node shown on chest CT of October 06, 2016 are now normal in size. The size of the heart is normal. There is no pericardial effusion. Cirrhosis with esophageal varices is again noted. Dense right pleural multifocal calcification is chronic. This is unchanged. There is no consolidation to suggest pneumonia. There are no suspicious pulmonary nodules. No pneumothorax or pleural effusion is present. There are no suspicious osseous lesions. The abdomen and pelvis will be reported separately. IMPRESSION: 1. Interval resolution of thoracic lymphadenopathy since CT of October 06, 2016. 2. Significant interval decrease in size of a mildly enlarged left level 4 cervical lymph node. Electronically signed by: Derrick Lowe M.D. 04/03/2017 11:29 AM Dictated Date/Time: 04/03/2017 11:20 AM
== END | disposition home or self-care (01) ==
LOC: C.CTS 08:11
PROVIDERS: ATTEND Internal Medicine Hematology & Oncology
DX: C91.10 Chronic lymphocytic leukemia of B-cell type not having achieved remission (principal); K74.60 Unspecified cirrhosis of liver; R16.1 Splenomegaly, not elsewhere classified; R59.0 Localized enlarged lymph nodes

== ENCOUNTER 2017-04-16 11:36 | Day surgery (SDC) | payer OTHER ==
[2017-04-03 08:41] VITALS: BMI 22.0
--- NOTE | 2017-04-03 09:10 | PAT Medication Instructions ---
Service Date Apr 03, 2017. Current Home Medication List Albuterol Hfa (Ventolin Hfa), 2 PUFFS PO DAILY PRN for Shortness of Breath Docusate Sodium (Colace), 1 CAP PO QAM Latanoprost (Latanoprost), 1 DROP OPB HS Lorazepam (Ativan), 0.5 MG PO QID PRN for Anxiety Multivitamin (Multivitamin), 1 TAB PO QAM Oxycodone Hcl (Oxycodone Hcl), 1 TAB PO q4-6 hrs PRN for Pain Prochlorperazine Maleate (Compazine), 10 MG PO TID PRN for Nausea Medication Instructions For Your Scheduled Surgery - Hold the following medications the morning of surgery: Multivitamin (Multivitamin), 1 TAB PO QAM Docusate Sodium (Colace), 1 CAP PO QAM - Take the following medications the morning of surgery with a sip of water OTHERWISE NOTHING TO EAT OR DRINK AFTER MIDNIGHT: Albuterol Hfa (Ventolin Hfa), 2 PUFFS PO DAILY PRN for Shortness of Breath (use if needed; BRING TO HOSPITAL) Oxycodone Hcl (Oxycodone Hcl), 1 TAB PO q4-6 hrs PRN for Pain (may take if needed up to 4 hours prior to surgery) Prochlorperazine Maleate (Compazine), 10 MG PO TID PRN for Nausea Lorazepam (Ativan), 0.5 MG PO QID PRN for Anxiety - Take the following medications as scheduled the night before surgery: Albuterol Hfa (Ventolin Hfa), 2 PUFFS PO DAILY PRN for Shortness of Breath Oxycodone Hcl (Oxycodone Hcl), 1 TAB PO q4-6 hrs PRN for Pain Prochlorperazine Maleate (Compazine), 10 MG PO TID PRN for Nausea Lorazepam (Ativan), 0.5 MG PO QID PRN for Anxiety Latanoprost (Latanoprost), 1 DROP OPB HS If you have any questions please call us at [phone] or [phone] or [phone]
[2017-04-03 09:37] LABS: MEAN CELL VOLUME 91.1 fL (80-100); MEAN CORPUSCULAR HEMOGLOBIN 30.8 pg (25-34); MEAN CORPUSCULAR HGB CONC 33.8 g/dl (32-36); RED BLOOD COUNT 4.61 M/uL (4.7-6.1); WHITE BLOOD COUNT 8.93 K/uL (4.8-10.8)
[2017-04-03 09:51] LABS: URINE APPEARANCE CLEAR (CLEAR); URINE BILIRUBIN NEG (NEG); URINE COLOR DK YELLOW; URINE NITRITE NEG (NEG); URINE PH 5.5 (4.5-7.5); URINE SPECIFIC GRAVITY 1.027 (1.000-1.030); UROBILINOGEN NEG (NEG)
[2017-04-03 09:59] LABS: MANUAL MICROSCOPIC REQUIRED? NO; REVIEW REQ? NO
[2017-04-03 11:10] LABS: PLATELET COUNT 72 K/uL (130-400)
[2017-04-03 11:15] LABS: BASO % 0.2 %; BASO ABS # 0.02 K/uL (0-0.2); COMPLETE YES; EOS % 1.3 %; IG% 0.7 %; LYMPH % 8.1 %; LYMPH ABS # 0.72 K/uL (1.2-3.4); MEAN PLATELET VOLUME 10.3 fL (7.4-10.4); MONO % 14.1 %; NEUT % 75.6 %; PLT ESTIMATE DECREASED; TOXIC GRANULATION 1+
[2017-04-03 11:23] LABS: BUN/CREATININE RATIO 18.4 (10-20); CALCIUM 9.4 mg/dl (8.5-10.1); CREATININE 0.8 mg/dl (0.60-1.40); POTASSIUM 4.6 mmol/L (3.5-5.1)
[~2017-04-16] VITALS: Ht 170.2 cm; Wt 64.4 kg
[~2017-04-16 11:36] MED LIST changes: -BND25X PO; +CIPROFLOXACIN / D5W 400 MG IV SCH; -FLVHFA110 INH; +LACTATED RINGER'S 1000ML 1,000 ML IV SCH; -OPTIRAY 320 IV PRN; -PRD20 PO; -SULF800T23 PO; -[UNRECOGNIZED DRUG - CODE] EXT
--- NOTE | 2017-04-16 11:57 | History & Physical Bridge Note ---
H&P Re-Evaluation Bridge Note: I have examined the patient, reviewed the History & Physical and in the interval since the performance of the History & Physical I have noted the following changes of clinical significance: No changes noted
[2017-04-16] MEDS ORDERED: MITOMYCIN FOR INJ 40 MG in SYRINGE 40 ML IR SCH (12:15)
[2017-04-16 12:19] VITALS: BP 118/72; PULSE 72; TEMP 37; O2SAT 99; Ht 170.2 cm; Wt 64.4 kg
[2017-04-16 12:35] LABS: HEMATOCRIT 40.2 % (42-52); MEAN CELL VOLUME 89.3 fL (80-100); MEAN CORPUSCULAR HEMOGLOBIN 31.1 pg (25-34); MEAN PLATELET VOLUME 9.4 fL (7.4-10.4); PLATELET COUNT 103 K/uL (130-400); WHITE BLOOD COUNT 4.38 K/uL (4.8-10.8)
[2017-04-16 12:43] LABS: MEAN CORPUSCULAR HGB CONC 34.8 g/dl (32-36)
[2017-04-16] MEDS ORDERED: EpHEDrine SULFATE INJ 50 MG/ML AMP IV PRN (13:00)
[2017-04-16] MEDS ORDERED: FENTANYL CITRATE INJ 50 MCG/1 ML 2 ML VIAL IV PRN (13:00)
[2017-04-16] MEDS ORDERED: ONDANSETRON INJ 2 MG/ML 2 ML VIAL IV PRN (13:00)
[2017-04-16] MEDS ORDERED: HYDROmorphone INJ 1 MG/ML SYR IV PRN ×2 (13:00→15:30)
[2017-04-16] MEDS ORDERED: ATROPINE SULFATE 0.1 MG/ML 5ML SYR IV PRN (13:00)
[2017-04-16] MEDS ORDERED: PROMETHAZINE HCL INJ 12.5 MG in SODIUM CHLORIDE 0.9% 50ML 50 ML IV PRN (13:00)
[2017-04-16] MEDS ORDERED: FENTANYL CITRATE INJ 50 MCG/1 ML 2 ML VIAL IV ONE (13:15)
[2017-04-16] MEDS ORDERED: FENTANYL CITRATE INJ 50 MCG/1 ML 2 ML VIAL ONE ×2 (13:21→13:27)
[2017-04-16] MEDS ORDERED: LIDOCAINE HCL 2% 2 ML VIAL (20MG/ML) ONE (13:27)
[2017-04-16] MEDS ORDERED: PROPOFOL IV EMULSION 10 MG/ML 20 ML VIAL IV ONE (13:27)
[2017-04-16] MEDS ORDERED: ONDANSETRON INJ 2 MG/ML 2 ML VIAL ONE (13:27)
[2017-04-16] MEDS ORDERED: DEXAMETHASONE SOD INJ 4 MG/ML VIAL ONE (13:27)
[2017-04-16] MEDS ORDERED: MIDAZOLAM HCL 1 MG/ML 2ML VIAL ONE (13:27)
[2017-04-16] MEDS ORDERED: ALBUT/IPRATROP 3MG/0.5MG NEB 3 ML VIAL INH ONE (14:15)
[2017-04-16 14:45] VITALS: PULSE 77; O2SAT 96
[2017-04-16] MEDS ORDERED: SULF800T23 PO ×2 (15:25)
--- NOTE | 2017-04-16 15:28 | Discharge Instructions ---
Discharge Instructions Date of Service Apr 16, 2017. Admission Reason for Admission: Recurrent Bladder Cancer Discharge Discharge Diagnosis / Problem: Bladder cancer Discharge Goals Goal(s): Improve disease control, Diagnostic testing, Therapeutic intervention Activity Recommendations Activity Limitations: as noted below Lifting Limitations: no more than 25 pounds, gradually increase as tolerated Exercise/Sports Limitations: rest today, gradually increase as tolerated May Resume Sexual Activity: when tolerated Shower/Bathe: no limitations Driving or Machine Use: resume 1 day after discharge . Instructions / Follow-Up Instructions / Follow-Up As scheduled in office to discuss pathology results Discharge Diet Recommended Diet: Regular Diet (good fluid intake) Procedures Procedures Performed: Transurethral Resection Bladder Tumor, Urethral Dilation, Instillation of Mytomycin Pending Studies Studies pending at discharge: yes List of pending studies: Pathology report Medical Emergencies . Who to Call and When: Medical Emergencies: If at any time you feel your situation is an emergency, please call 911 immediately. . Non-Emergent Contact Non-Emergency issues call your: Urologist Call Non-Emergent contact if: you have a fever, temperature is above 101, your pain is unusual for you, you have any medication questions . . "Provider Documentation" section prepared by Jaziel Gtz. . VTE Core Measure Inpt VTE Proph given/why not?: SCD's [place] Drug Monitoring Program Search Results: patient reviewed within database, no issues identified (no Rx in database despite regular medication use)
[2017-04-16] MEDS ORDERED: PHENAZOPYRIDINE HCL 200 MG TAB PO PRN (15:30)
[2017-04-16] MEDS ORDERED: OXYCODONE HCL IR 5 MG TAB (IMMEDIATE RELEASE) PO PRN (15:30)
--- NOTE | 2017-04-16 15:31 | [facility] Post Operative Brief Note ---
Immediate Operative Summary Operative Date Apr 16, 2017. Pre-Operative Diagnosis Recurrent bladder cancer Post-Operative Diagnosis Recurrent bladder cancer, mild urethal stenosis Procedure(s) Performed Transurethral Resection Bladder Tumor, Urethral Dilation, Instillation of Mytomycin Surgeon Dr. Jaziel Gtz Sewer Surgeon(s) None Estimated Blood Loss 0 ml Findings Single tumor at 12 oclock at bladder neck resected, 40 mg of Mitomycin in 40 cc H2O instilled x 2 hours Specimens A. Anterior Bladder Tumor Drains 18 fr johnson, 10 cc H2O Anesthesia GALMA Complication(s) None Disposition Recovery Room / PACU
--- NOTE | 2017-04-16 15:35 | [facility] Operative Report ---
Operative Report Operative Date Apr 16, 2017. Pre-Operative Diagnosis Recurrent bladder cancer Post-Operative Diagnosis Recurrent bladder cancer, mild urethal stenosis Procedure(s) Performed Transurethral Resection Bladder Tumor, Urethral Dilation, Instillation of Mytomycin Surgeon Dr. Jaziel Gtz Night Shift Surgeon(s) None Estimated Blood Loss 0 ml Findings Solitary tumor at 12 oclock at bladder neck resected, 40 mg of Mitomycin in 40 cc H2O instilled x 2 hours Specimens A. Anterior Bladder Tumor Drains 18 fr johnson, 10 cc H2O Anesthesia GALMA Complication(s) None Disposition Recovery Room / PACU Indications 61-year-old male with a history of recurrent bladder cancer here today for resection of a solitary bladder tumor. Please see H&P and office visits for further details. Intravenous antibiotic provided for coverage today and SCDs used for DVT prophylaxis. This is his third recurrence in approximately a year and BCG is being considered as an outpatient. Description of Procedure Patient was properly identified and brought to the operative suite after identification of appropriate consent of the chart general anesthesia with laryngeal mask was initiated and patient was prepped and draped in the standard fashion for this procedure full-time out procedure was followed 26 English rigid resectoscope was introduced into the bladder under direct visualization using a visual obturator and patient sent noted to have some tightness at the level of the urethra. This was dilated to 28 English caliber and scope was then able to be passed easily. Patient was noted to have a short, mild to moderately obstructive prostate gland with some bladder neck elevation and mild lateral lobe hypertrophy. Within the bladder early trabeculation was noted. Other than the patient's solid papillary tumor, approximately 1 cm at the 12 o'clock position, no other abnormalities, mucosal findings, stones or tumors were appreciated. Ureteral orifices were noted in the normal anatomic location and were effluxing clear yellow urine bilaterally. Using a bipolar loop the tumor was resected with a single pass. This was irrigated free from the bladder and sent for pathologic analysis. Excellent hemostasis was obtained as necessary with cautery and bladder was inspected and noted to be free of any injury. Bladder was drained resectoscope was removed. 18 English Johnson catheter was placed using a catheter guide with 10 mL of sterile water in the balloon. 40 mg of mitomycin C in 40 mL of water were instilled within the bladder which was then clamped. This will be unclamped trial of void we'll proceed in approximately 2 hours time. Anesthesia was reversed patient was transferred to the recovery room in stable condition. Prescription for Bactrim 3 days was provided for postoperative antibiotic coverage. Outpatient appointments are confirmed. Patient's instructed to contact our service should he note any fevers, chills, nausea or vomiting in the postoperative period or any other difficulties. I attest to the content of the Intraoperative Record and any orders documented therein. Any exceptions are noted below.
--- NOTE | 2017-04-16 16:09 | Anesthesiology Progress Note ---
Anesthesia Post Op Note Date & Time Apr 16, 2017 at 16:09 Vital Signs Pain Intensity: 0 Vital Signs Past 12 Hours Date Time Temp Pulse Resp B/P (MAP) Pulse Ox O2 Delivery O2 Flow Rate FiO2 04/16/17 15:50 36.4 82 20 128/83 98 Room Air 04/16/17 15:40 78 20 124/85 100 Nasal Cannula 2 04/16/17 15:30 81 20 122/88 100 Nasal Cannula 2 04/16/17 15:20 89 20 127/83 98 Nasal Cannula 2 04/16/17 15:13 36.8 82 20 99/69 98 Nasal Cannula 10 04/16/17 14:45 77 16 96 Room Air 04/16/17 12:19 37 72 18 118/72 (87) 99 Room Air Notes Mental Status: alert / awake / arousable, participated in evaluation Pt Amnestic to Procedure: Yes Nausea / Vomiting: adequately controlled Pain: adequately controlled Airway Patency, RR, SpO2: stable & adequate BP & HR: stable & adequate Hydration State: stable & adequate Anesthetic Complications: no major complications apparent
[2017-04-16 16:10] VITALS: BP 109/78; PULSE 70; TEMP 37; O2SAT 99
[2017-04-16] MEDS ORDERED: OXYCODONE HCL IR 5 MG TAB (IMMEDIATE RELEASE) ONE (16:27)
[2017-04-16 16:35] VITALS: BP 138/78; PULSE 79; TEMP 36.8; O2SAT 99
[2017-04-16 17:05] VITALS: BP 122/73; PULSE 94; TEMP 37.1; O2SAT 96
== END 2017-04-16 17:30 | disposition home or self-care (01) ==
LOC: C.ACU 11:36
PROVIDERS: ATTEND Urology
DX: C67.5 Malignant neoplasm of bladder neck (principal); N35.9 Urethral stricture, unspecified; N40.1 Benign prostatic hyperplasia with lower urinary tract symptoms; N13.8 Other obstructive and reflux uropathy; C91.10 Chronic lymphocytic leukemia of B-cell type not having achieved remission; F41.8 Other specified anxiety disorders; H40.9 Unspecified glaucoma; J44.9 Chronic obstructive pulmonary disease, unspecified; F10.21 Alcohol dependence, in remission; M19.049 Primary osteoarthritis, unspecified hand; Z96.659 Presence of unspecified artificial knee joint; Z82.49 Family history of ischemic heart disease and other diseases of the circulatory system; Z81.1 Family history of alcohol abuse and dependence; Z83.6 Family history of other diseases of the respiratory system; Z87.891 Personal history of nicotine dependence; K74.60 Unspecified cirrhosis of liver; D69.6 Thrombocytopenia, unspecified; Z92.21 Personal history of antineoplastic chemotherapy

== ENCOUNTER → 2017-04-24 | Outpatient (CLI) | payer OTHER ==
[~2017-04-24] MED LIST changes: -CIPROFLOXACIN / D5W 400 MG IV SCH; -LACTATED RINGER'S 1000ML 1,000 ML IV SCH; -MULT-506 PO; +SULF800T23 PO; -VNTHFA/IN PO
[2017-04-24 12:30] LABS: URINE APPEARANCE CLEAR (CLEAR); URINE BILIRUBIN NEG (NEG); URINE COLOR DK YELLOW; URINE NITRITE NEG (NEG); URINE PH 5.5 (4.5-7.5); URINE SPECIFIC GRAVITY 1.025 (1.000-1.030); UROBILINOGEN NEG (NEG)
[2017-04-24 12:32] LABS: MANUAL MICROSCOPIC REQUIRED? NO; REVIEW REQ? NO
== END | disposition home or self-care (01) ==
LOC: C.LAB 11:13
PROVIDERS: ATTEND Physician Assistant
DX: C68.9 Malignant neoplasm of urinary organ, unspecified (principal)

== ENCOUNTER → 2017-05-21 | Outpatient (CLI) | payer OTHER ==
[~2017-05-21] MED LIST changes: +MULT-506 PO; +VNTHFA/IN PO
[2017-05-21 09:37] LABS: HEMATOCRIT 42.2 % (42-52); MEAN CELL VOLUME 88.3 fL (80-100); MEAN CORPUSCULAR HEMOGLOBIN 30.5 pg (25-34); MEAN CORPUSCULAR HGB CONC 34.6 g/dl (32-36); RED BLOOD COUNT 4.78 M/uL (4.7-6.1)
[2017-05-21 09:44] LABS: PROTHROMBIN TIME (PATIENT) 11.1 SECONDS (9.0-12.0)
[2017-05-21 09:57] LABS: ALT/SGPT 29 U/L (12-78); AST/SGOT 22 U/L (15-37); BLOOD UREA NITROGEN 12 mg/dl (7-18); BUN/CREATININE RATIO 15.4 (10-20); CALCIUM 9.2 mg/dl (8.5-10.1); CARBON DIOXIDE 31 mmol/L (21-32); CHLORIDE 105 mmol/L (98-107); CREATININE 0.79 mg/dl (0.60-1.40); GLUCOSE 107 mg/dl (70-99); POTASSIUM 4.4 mmol/L (3.5-5.1); SODIUM 140 mmol/L (136-145)
[2017-05-21 09:58] LABS: PLATELET COUNT 82 K/uL (130-400)
[2017-05-21 10:00] LABS: ALB/GLOB RATIO 1.6 (0.9-2); ALKALINE PHOSPHATASE 82 U/L (45-117)
[2017-05-21 10:02] LABS: BASO ABS # 0.05 K/uL (0-0.2); BASOPHIL % 0.9 % (0-2); COMPLETE YES; EOSINOPHIL % 13.2 %; LYMPH ABS # 0.89 K/uL (1.2-3.4); LYMPHOCYTE % 16.7 %; NEUTROPHILS % 50.7 %; OVALOCYTES 1+; PLT ESTIMATE DECREASED; VARIANT LYMPHOCYTE % 13.2 %
== END | disposition home or self-care (01) ==
LOC: C.LAB 11:04
PROVIDERS: ATTEND Physician Assistant
DX: C68.9 Malignant neoplasm of urinary organ, unspecified (principal); C91.10 Chronic lymphocytic leukemia of B-cell type not having achieved remission; K74.69 Other cirrhosis of liver

== ENCOUNTER → 2017-09-21 | Outpatient (CLI) | payer OTHER ==
[~2017-09-21] MED LIST changes: -MULT-506 PO; -VNTHFA/IN PO
[2017-09-21 11:49] LABS: HEMATOCRIT 44.6 % (42-52); MEAN CELL VOLUME 87.3 fL (80-100); MEAN CORPUSCULAR HEMOGLOBIN 31.3 pg (25-34); MEAN CORPUSCULAR HGB CONC 35.9 g/dl (32-36); RED CELL DISTRIBUTION WIDTH CV 13.5 % (11.5-14.5); RED CELL DISTRIBUTION WIDTH SD 43.4 fL (36.4-46.3); WHITE BLOOD COUNT 6.45 K/uL (4.8-10.8)
[2017-09-21 12:05] LABS: ALBUMIN 4.2 gm/dl (3.4-5.0); ALT/SGPT 26 U/L (12-78); BLOOD UREA NITROGEN 12 mg/dl (7-18); CALCIUM 9.1 mg/dl (8.5-10.1); CARBON DIOXIDE 31 mmol/L (21-32); CREATININE 0.88 mg/dl (0.60-1.40); GLUCOSE 120 mg/dl (70-99); POTASSIUM 4.7 mmol/L (3.5-5.1); SODIUM 137 mmol/L (136-145)
[2017-09-21 12:10] LABS: MEAN PLATELET VOLUME 9.7 fL (7.4-10.4); PLATELET COUNT 85 K/uL (130-400)
[2017-09-21 12:21] LABS: ALKALINE PHOSPHATASE 91 U/L (45-117); AST/SGOT 20 U/L (15-37); TOTAL PROTEIN 7.6 gm/dl (6.4-8.2)
== END | disposition home or self-care (01) ==
LOC: C.LABSPEC 11:34
PROVIDERS: ATTEND Physician Assistant
DX: C91.10 Chronic lymphocytic leukemia of B-cell type not having achieved remission (principal)

== ENCOUNTER → 2017-11-26 | Outpatient (CLI) | payer OTHER ==
[~2017-11-26] MED LIST changes: +GADAVIST IV PRN; -SULF800T23 PO
--- NOTE | 2017-11-26 14:00 | DIAGNOSTIC IMAGING REPORT ---
BRAIN COMBO CLINICAL HISTORY: SUBACUTE ONSET OF TREMOR mental status change COMPARISON STUDY: 12/06/2016 TECHNIQUE: Utilizing a 1.5 Macrina magnet and dedicated coil, multiplanar, multiecho imaging of the brain was performed pre and postcontrast administration. IV administration of 8 mL of Gadavist contrast was uneventful. FINDINGS: Improved bone marrow signal characteristics compared to the prior study. Signal characteristics the cerebellar as well as cerebral hemispheres are unremarkable. No significant postcontrast enhancement. Ventricular system is midline. Internal artery canals are symmetric. Sella and parasellar region are unremarkable. There is a 3 mm cyst anterior aspect of the pituitary unchanged from the prior study. IMPRESSION: 1. Improved bone marrow signal as compared to the prior study. 2. Study of the brain is otherwise negative. The above report was generated using voice recognition software. It may contain grammatical, syntax or spelling errors. Electronically signed by: Joe Seymour M.D. 11/26/2017 1:58 PM Dictated Date/Time: 11/26/2017 1:54 PM
== END | disposition home or self-care (01) ==
LOC: C.MRI 13:13
PROVIDERS: ATTEND Internal Medicine Hematology & Oncology
DX: C91.10 Chronic lymphocytic leukemia of B-cell type not having achieved remission (principal); R25.1 Tremor, unspecified

== ENCOUNTER → 2017-12-20 | Outpatient (CLI) | payer OTHER ==
[~2017-12-20] MED LIST changes: -GADAVIST IV PRN
[2017-12-20 14:57] LABS: HEMOGLOBIN 16.1 g/dL (14.0-18.0); MEAN CELL VOLUME 87.8 fL (80-100); MEAN CORPUSCULAR HEMOGLOBIN 30.7 pg (25-34); RED CELL DISTRIBUTION WIDTH CV 13.8 % (11.5-14.5); RED CELL DISTRIBUTION WIDTH SD 44.4 fL (36.4-46.3); WHITE BLOOD COUNT 6.12 K/uL (4.8-10.8)
[2017-12-20 15:21] LABS: MEAN PLATELET VOLUME 9.4 fL (7.4-10.4); PLATELET COUNT 86 K/uL (130-400)
[2017-12-20 15:30] LABS: ALBUMIN 4.3 gm/dl (3.4-5.0); ALT/SGPT 29 U/L (12-78); AST/SGOT 23 U/L (15-37); BLOOD UREA NITROGEN 10 mg/dl (7-18); CALCIUM 9.3 mg/dl (8.5-10.1); CARBON DIOXIDE 31 mmol/L (21-32); CREATININE 0.93 mg/dl (0.60-1.40); GLUCOSE 84 mg/dl (70-99); POTASSIUM 4.2 mmol/L (3.5-5.1); SODIUM 137 mmol/L (136-145)
[2017-12-20 15:41] LABS: ALKALINE PHOSPHATASE 98 U/L (45-117); CHOLESTEROL 187 mg/dl (0-200); LDL CHOLESTEROL CALCULATED 110 mg/dl; TOTAL PROTEIN 7.9 gm/dl (6.4-8.2)
== END | disposition home or self-care (01) ==
LOC: C.LAB 16:43
PROVIDERS: ATTEND Physician Assistant
DX: C67.9 Malignant neoplasm of bladder, unspecified (principal); C91.10 Chronic lymphocytic leukemia of B-cell type not having achieved remission; R53.83 Other fatigue; Z12.5 Encounter for screening for malignant neoplasm of prostate; Z13.220 Encounter for screening for lipoid disorders

== ENCOUNTER 2018-05-01 11:32 | Emergency (ER) | payer OTHER ==
[~2018-05-01] VITALS: Ht 170.2 cm; Wt 58.6 kg
[~2018-05-01 11:32] MED LIST changes: +PROC10TA PO; -PROC1TAB5 PO
[2018-05-01 11:36] VITALS: TEMP 36.8
[2018-05-01] MEDS ORDERED: BUPR1SUB23 PO (12:20)
--- NOTE | 2018-05-01 12:42 | EMERGENCY ROOM VISIT NOTE ---
History Report prepared by Nga: Chapo Weber Under the Supervision of: Dr. Dariel Cline M.D. First contact with patient: 12:09 Chief Complaint: PALPITATIONS Stated Complaint: HEART PALPITATIONS History of Present Illness The patient is a 62 year old male who is a prior smoker who quit x3 years ago who presents to the Emergency Room with complaints of palpitations. The patient notes on Sunday when cutting grass he had x1 hour of chest tightness and shortness of breath that resolved with rest. He states since this he has had intermittent and spontaneous episodes of palpitations, which resolve on their own. He states since that episode on Sunday, he has not had any further episodes of chest tightness. The patient notes during the episode he did have mild diaphoresis and dizziness, but notes it could be related to his anxiety which he has chronically. The patient states he is currently on Suboxone for chronic pain management. The patient denies a cardiac history but does note he has cancer. Pt denies LOC, headache, fevers, chills, visual changes, neck pain, chest pain, nausea, vomiting, abdominal pain, back pain, melena, hematochezia, urinary symptoms, numbness, weakness, lymphadenopathy, rash, or other complaints. Source of History: patient Onset: 2 days Position: chest Symptom Intensity: moderate Timing: intermittent Modifying Factors (Worsening): exertion Modifying Factors (Relieving): rest Associated Symptoms: + diaphoresis, + SOB, + nausea, No LOC, No fevers, No chills, No headache, No vomiting, No abdominal pain Review of Systems See HPI for pertinent positives and negatives. A total of ten systems were reviewed and were otherwise negative. Constitutional: No fever, No chills Respiratory: + shortness of breath, No cough Abdomen: + nausea, No pain, No vomiting, No diarrhea Integumentary: No rash Past Medical & Surgical Medical Problems: (1) CLL (chronic lymphocytic leukemia) (2) CLL (chronic lymphocytic leukemia) (3) Fever Surgical Problems: (1) Status post right knee replacement Family History Heart disease Social History Smoking Status: Former Smoker Alcohol Use: none Drug Use: none Marital Status: single Housing Status: lives alone Occupation Status: unemployed Current/Historical Medications Scheduled Buprenorphine Hcl-Naloxone Hcl (Suboxone 8-2 Mg), 1 TABS PO BID Docusate Sodium (Colace), 1 CAP PO QAM Latanoprost (Latanoprost), 1 DROP OPB HS Allergies Coded Allergies: Bee Venom (Verified Allergy, Severe, throat swelling , 05/01/18) Levofloxacin (Verified Allergy, Intermediate, HIVES, 05/01/18) severe hive, pt got Levaquin, VAnco, and zosyn together for possible possibel sepsis from spiking fever while on chemo, developed diffused whole body rashes, d/w pt , the alicia possibe is from Levaquin, this is also because "had some reation from Levaquine before", Physical Exam Vital Signs Date Time Temp Pulse Resp B/P (MAP) Pulse Ox O2 Delivery O2 Flow Rate FiO2 05/01/18 15:39 84 20 124/78 98 Room Air 05/01/18 14:11 63 20 122/74 96 Room Air 05/01/18 13:32 69 19 97 Room Air 05/01/18 13:02 76 19 93 Room Air 05/01/18 12:50 Room Air 05/01/18 12:32 68 13 96 Room Air 05/01/18 12:02 68 05/01/18 12:02 70 16 96 Room Air 05/01/18 11:47 95 Room Air 05/01/18 11:36 36.8 77 18 134/80 98 Room Air Physical Exam GENERAL: Mildly anxious appearing. Awake, alert, well-appearing, in no distress HENT: Normocephalic, atraumatic. Oropharynx unremarkable. EYES: Normal conjunctiva. Sclera non-icteric. NECK: Supple. No nuchal rigidity. FROM. No masses. RESPIRATORY: Clear to auscultation. No wheezes. No rales. Normal respiratory effort. CARDIAC: Normal rate. Normal rhythm. No murmurs. No rubs. Extremities warm and well perfused. Pulses equal. No JVD. GI: Soft, non-distended. No tenderness to palpation. No rebound or guarding. No masses. RECTAL: Deferred. MUSCULOSKELETAL: Atraumatic. Chest examination reveals no tenderness. The back is symmetrical on inspection without obvious abnormality. There is no CVA tenderness to palpation. No joint edema. LOWER EXTREMITIES: Calves are equal size bilaterally and non-tender. No edema. No discoloration. NEURO: Normal sensorium. No sensory or motor deficits noted. SKIN: No rash or jaundice noted. Medical Decision & Procedures ER Provider Diagnostic Interpretation: Radiology results as stated below per my review and radiologist interpretation: [~ rep ct add3]] CHEST ONE VIEW PORTABLE CLINICAL HISTORY: Weakness COMPARISON STUDY: 7517 FINDINGS: The cardiac and mediastinal contours remain stable. Extensive right-sided pleural calcifications are again evident. There is chronic blunting of the right lateral costophrenic angle. There is no failure. There is no focal pulmonary consolidation. There are no pleural effusions.[ IMPRESSION: No active disease in the chest Laboratory Results 05/01/18 12:50 Red Blood Count 4.89, Mean Corpuscular Volume 90.0, Mean Corpuscular Hemoglobin 30.7, Mean Corpuscular Hemoglobin Concent 34.1, Mean Platelet Volume 11.0 05/01/18 12:50 Test 05/01/18 12:50 05/01/18 13:02 White Blood Count 4.59 K/uL (4.8-10.8) Red Blood Count 4.89 M/uL (4.7-6.1) Hemoglobin 15.0 g/dL (14.0-18.0) Hematocrit 44.0 % (42-52) Mean Corpuscular Volume 90.0 fL (80-100) Mean Corpuscular Hemoglobin 30.7 pg (25-34) Mean Corpuscular Hemoglobin Concent 34.1 g/dl (32-36) Platelet Count 77 K/uL (130-400) Mean Platelet Volume 11.0 fL (7.4-10.4) RDW Standard Deviation 45.2 fL (36.4-46.3) RDW Coefficient of Variation 13.7 % (11.5-14.5) Neutrophils % (Manual) 64.6 % Lymphocytes % (Manual) 11.2 % Variant Lymphocytes % (manual) 14.7 % Monocytes % (Manual) 8.6 % Eosinophils % (Manual) 0.9 % Neutrophils # (Manual) 2.97 K/uL (1.4-6.5) Total Absolute Neutrophils 2.97 K/uL (1.4-6.5) Lymphocytes # (Manual) 0.51 K/uL (1.2-3.4) Absolute Variant Lymphocytes 0.67 K/uL Total Absolute Lymphocytes 1.19 K/uL (1.2-3.4) Monocytes # (Manual) 0.39 K/uL (0.11-0.59) Eosinophils # (Manual) 0.04 K/uL (0-0.5) Red Blood Cell Morphology Unremarkable Prothrombin Time 10.5 SECONDS (9.0-12.0) Prothromb Time International Ratio 1.0 (0.9-1.1) Activated Partial Thromboplast Time 25.5 SECONDS (21.0-31.0) Partial Thromboplastin Ratio 1.0 Anion Gap 6.0 mmol/L (3-11) Est Creatinine Clear Calc Drug Dose 85.7 ml/min Estimated GFR () 114.8 Estimated GFR (Non- 99.0 BUN/Creatinine Ratio 16.4 (10-20) Calcium Level 9.4 mg/dl (8.5-10.1) Magnesium Level 2.2 mg/dl (1.8-2.4) Total Bilirubin 0.9 mg/dl (0.2-1) Direct Bilirubin 0.3 mg/dl (0-0.2) Aspartate Amino Transf (AST/SGOT) 23 U/L (15-37) Alanine Aminotransferase (ALT/SGPT) 32 U/L (12-78) Alkaline Phosphatase 77 U/L (45-117) Total Creatine Kinase 47 U/L (39-308) Creatine Kinase MB < 1.0 ng/ml (0.5-3.6) Creatine Kinase MB Ratio (0-3.0) Total Protein 7.7 gm/dl (6.4-8.2) Albumin 4.3 gm/dl (3.4-5.0) Thyroid Stimulating Hormone (TSH) 0.405 uIu/ml (0.300-4.500) Bedside D-Dimer 45 ng/mlFEU (0-450) Bedside Troponin I < 0.030 ng/ml (0-0.045) Laboratory results reviewed by me ECG Per My Interpretation Indication: palpitations Rate (beats per minute): 65 Rhythm: normal sinus Findings: other (No PACs, PVCs, ST elevations or depressions) ED Course Rechecks: 1458: Patient resting comfortably. Medical Decision Prior records/ancillary studies reviewed. Triage Nursing notes reviewed and agree them. The patient's history was concerning for palpitations. Differential diagnosis: Etiologies such as electrolyte abnormality, cardiac dysrhythmia, thyroid dysfunction, pulmonary embolism, infection, gastrointestinal, as well as others were entertained. Physical examination: Benign as above. ER treatment provided: Cardiac monitoring. PACs noted No medication given On reassessment the patient felt better. Diagnostic interpretation by me: The electrocardiogram was negative for pathologic change. The labs revealed an unremarkable CBC and chemistry panel except for thrombocytopenia. The patient notes he has had this in the past. Record review indicates the same. The patient has a negative d-dimer and troponin. Imaging studies: Chest x-ray as above. The patient had feelings of palpitations. He has a negative troponin, d-dimer and EKG. Chest x-ray is unremarkable. The patient was found to have PACs on cardiac monitoring. He did have the symptoms with this. He will follow-up closely as an outpatient with his primary clinic. I did recommend discussing an outpatient stress test as well as an outpatient secured entrance monitor. The patient follow up with the [facility] for this. If he worsens in any way he will be back. I gave my usual and customary discussion regarding this issue. By the evaluation outlined above other emergent etiologies such as those listed in the differential, as well as others, were deemed relatively unlikely. The patient was educated about the findings as listed above. All questions were answered and the patient was pleased with the treatment. Return instructions were outlined and the patient was discharged in stable condition. The patient was referred to his PCP for follow-up for a recheck of the current condition. Medication Reconcilliation Current Medication List: was personally reviewed by me Blood Pressure Screening Patient's blood pressure: Normal blood pressure Impression Primary Impression: Palpitations Additional Impression: PAC (premature atrial contraction) Scribe Attestation The scribe's documentation has been prepared under my direction and personally reviewed by me in its entirety. I confirm that the note above accurately reflects all work, treatment, procedures, and medical decision making performed by me. Departure Information Dispostion Home / Self-Care Referrals Darci Allen PA-C (PCP) Patient Instructions My [facility] Additional Instructions PALPITATIONS(RAPID OR SKIPPING HEARTBEAT) INSTRUCTIONS: Rest and drink plenty of fluids as tolerated. Continue current medications. Resume normal activities once your symptoms resolve. Eat a heart healthy, low fat, low cholesterol diet. Return to the ER immediately for passing out, chest pain, abdominal pain, vomiting, fevers, difficulty breathing, worsening of your condition, or as needed. Follow up with your primary physician in 1-2 days for a recheck of your current condition. Discuss having a stress test and outpatient cardiac monitoring ordered. Problem Qualifiers
[2018-05-01 12:50] VITALS: Ht 170.2 cm; Wt 58.6 kg
--- NOTE | 2018-05-01 13:13 | DIAGNOSTIC IMAGING REPORT ---
CHEST ONE VIEW PORTABLE CLINICAL HISTORY: Weakness COMPARISON STUDY: 7517 FINDINGS: The cardiac and mediastinal contours remain stable. Extensive right-sided pleural calcifications are again evident. There is chronic blunting of the right lateral costophrenic angle. There is no failure. There is no focal pulmonary consolidation. There are no pleural effusions.[ IMPRESSION: No active disease in the chest. Electronically signed by: Milton Vasquez M.D. 05/01/2018 1:12 PM Dictated Date/Time: 05/01/2018 1:12 PM
[2018-05-01 13:15] LABS: MEAN CORPUSCULAR HEMOGLOBIN 30.7 pg (25-34); MEAN CORPUSCULAR HGB CONC 34.1 g/dl (32-36); PLATELET COUNT 77 K/uL (130-400); RED CELL DISTRIBUTION WIDTH CV 13.7 % (11.5-14.5); RED CELL DISTRIBUTION WIDTH SD 45.2 fL (36.4-46.3); WHITE BLOOD COUNT 4.59 K/uL (4.8-10.8)
[2018-05-01 13:21] LABS: PTT PATIENT 25.5 SECONDS (21.0-31.0)
[2018-05-01 13:35] LABS: ALBUMIN 4.3 gm/dl (3.4-5.0); ALKALINE PHOSPHATASE 77 U/L (45-117); ALT/SGPT 32 U/L (12-78); AST/SGOT 23 U/L (15-37); BLOOD UREA NITROGEN 12 mg/dl (7-18); CALCIUM 9.4 mg/dl (8.5-10.1); CARBON DIOXIDE 31 mmol/L (21-32); CKMB < 1.0 ng/ml (0.5-3.6); CREATININE 0.75 mg/dl (0.60-1.40); GLUCOSE 90 mg/dl (70-99); POTASSIUM 4.3 mmol/L (3.5-5.1); SODIUM 139 mmol/L (136-145); TOTAL PROTEIN 7.7 gm/dl (6.4-8.2)
[2018-05-01 15:39] VITALS: BP 124/78; PULSE 84; O2SAT 98
== END 2018-05-01 16:00 | disposition home or self-care (01) ==
LOC: C.EDB 11:35 → C.EDC 16:00
DX: I49.1 Atrial premature depolarization (principal); F41.9 Anxiety disorder, unspecified; G89.29 Other chronic pain; Z79.899 Other long term (current) drug therapy; C91.10 Chronic lymphocytic leukemia of B-cell type not having achieved remission; Z96.651 Presence of right artificial knee joint; Z87.891 Personal history of nicotine dependence; Z91.030 Bee allergy status; Z88.1 Allergy status to other antibiotic agents